=== PATIENT | female | born 1975 ===

== ENCOUNTER 2017-04-13 21:28 | Inpatient (IN) | payer MEDICAID ==
[2017-04-13] MEDS ORDERED: Sodium Chloride 0.9% 1,000 ML IV STA (21:58)
--- NOTE | 2017-04-13 22:13 | ED PDOC ---
HPI: SOB/CHF/COPD Time Seen by Provider: 04/13/17 21:46 Chief Complaint (Nursing): Shortness Of Breath Chief Complaint (Provider): Shortness Of Breath History Per: Patient History/Exam Limitations: no limitations Onset/Duration Of Symptoms: Days (x2) Current Symptoms Are (Timing): Still Present Additional Complaint(s): 42 year old female with previous medical history of diabetes and hypertension, who presents to the emergency department with a complaint of shortness of breath associated with chest tightness, mild cough, nonbloody and nonbilious vomiting, decreased fluid intake, chills and bodyaches ongoing for 2 days. Denied any fever, diarrhea, abdominal pain or recent travel. Patient reported son currently has flu-like symptoms without antibiotic treatment. PMD: Dr Maria Teresa Yuen Past Medical History Reviewed: Historical Data, Nursing Documentation, Vital Signs Vital Signs: Last Vital Signs Temp 99.4 F 04/15/17 12:00 Pulse 80 04/15/17 13:37 Resp 16 04/15/17 13:37 BP 112/60 04/15/17 13:37 Pulse Ox 100 04/15/17 13:37 - Medical History PMH: Diabetes, HTN - Surgical History Surgical History: Tonsillectomy - Family History Family History: States: Diabetes, Hypertension - Social History Current smoker - smoking cessation education provided: Yes Alcohol: Occasional Drugs: Denies - Home Medications Home Medications: Ambulatory Orders Medication Instructions Recorded Enalapril Maleate [Vasotec] 5 mg PO DAILY 04/13/17 Insulin Glargine,Hum.rec.anlog 30 unit SQ HS 04/13/17 [Basaglar Kwikpen U-100] Insulin Lispro [humALOG] 10 units SC BID 04/13/17 - Allergies Allergies/Adverse Reactions: Allergies Allergy/AdvReac Type Severity Reaction Status Date / Time No Known Allergies Allergy Verified 04/13/17 21:53 Review of Systems ROS Statement: Except As Marked, All Systems Reviewed And Found Negative Constitutional: Positive for: Chills, Other (bodyache). Negative for: Fever Cardiovascular: Positive for: Chest Pain (tightness) Respiratory: Positive for: Cough (mild), Shortness of Breath Gastrointestinal: Positive for: Vomiting (nonbloody, nonbilious), Other ( decreased PO intake). Negative for: Abdominal Pain, Diarrhea Physical Exam - Reviewed Nursing Documentation Reviewed: Yes Vital Signs Reviewed: Yes - Physical Exam Appears: Positive for: Non-toxic, In Acute Distress Head Exam: Positive for: ATRAUMATIC, NORMOCEPHALIC Skin: Positive for: Warm, Dry Eye Exam: Positive for: EOMI, PERRL ENT: Positive for: Other (tacky mucus membranes). Negative for: Pharyngeal Erythema, Tonsillar Exudate Neck: Positive for: Painless ROM, Supple Cardiovascular/Chest: Positive for: Tachycardia. Negative for: Murmur Respiratory: Positive for: Normal Breath Sounds, Respiratory Distress (tachypnea ). Negative for: Wheezing Gastrointestinal/Abdominal: Positive for: Soft. Negative for: Tenderness, Mass , Distended, Guarding Back: Positive for: Normal Inspection. Negative for: Decreased ROM Extremity: Positive for: Normal ROM. Negative for: Deformity Lymphatic: Negative for: Adenopathy Neurologic/Psych: Positive for: Alert. Negative for: Motor/Sensory Deficits - Laboratory Results Result Diagrams: 04/15/17 04:30 04/15/17 04:30 Interpretation Of Abn Labs: NOTE: LABS ABOVE ARE NOT THE RESULTS AT TIME OF ER EVALUATION - ECG ECG Rhythm: Positive for: Normal QRS, Sinus Tachycardia O2 Sat by Pulse Oximetry: 100 (RA) Pulse Ox Interpretation: Normal - Radiology X-Ray Interpretation: No Acute Disease - Critical Care Total Time (In Min): 30 Documented Critical Care: Time excludes all time spent performint seperately billable procedures Medical Decision Making Medical Decision Making: Initial Impression: Vomiting; chest pain Differential Diagnosis: Gastritis; gastroenteritis; pancreatitis; DKA; electrolyte abnormality; dehydration Initial Plan: * VBG * EKG * Amylase * CMP * Lipase * Magnesium * Phosphorous * Troponin I * Urine * Urine dipstick * CBC * CXR * NS 1,000ml IV per 1,000mls/hr * Protonix inj 40mg IVP * Zofran inj 8mg IV * Glucose, blood, POC * Influenza A B VBG and ABG demonstrated marked acidosis, with elevated glucose. Pt's withheld her insulin today due to feeling ill and not eating much. Labs c/w DKA. Insulin bolus and drip started. GWYN pt findings and need to hospitalize for DKA. [facility] for critical care consult. [facility] [employer] admitting for [facility]. Scribe Attestation: Documented by Lou Cheney, acting as a scribe for Chelsea Mitchell MD. Provider Scribe Attestation: All medical record entries made by the Scribe were at my direction and personally dictated by me. I have reviewed the chart and agree that the record accurately reflects my personal performance of the history, physical exam, medical decision making, and the department course for this patient. I have also personally directed, reviewed, and agree with the discharge instructions and disposition. Disposition - Clinical Impression Clinical Impression: Diabetic keto-acidosis Counseled Patient/Family Regarding: Studies Performed, Diagnosis - Disposition Disposition Time: 23:00 Condition: CRITICAL - Pt Status Changed To: Hospital Disposition Of: Inpatient - Admit Certification Admit to Inpatient:: After my assessment, the patient will require hospitalization for at least two midnights. This is because of the severity of symptoms shown, intensity of services needed, and/or the medical risk in this patient being treated as an outpatient. - POA Present On Arrival: Poor Glycemic Control
[2017-04-13 22:31] LABS: VENOUS BLOOD GAS PCO2 23 mmHg (40-60); VENOUS BLOOD GAS PO2 26 mm/Hg (30-55); VENOUS BLOOD PH 7.04 (7.32-7.43)
[2017-04-13 22:45] LABS: ABG ALLEN TEST YES; ARTERIAL BLOOD GAS HCO3 6.2 mmol/L (21-28); ARTERIAL BLOOD GAS O2 CAPACITY 18.9 mL/dL (16-24); ARTERIAL BLOOD GAS O2 SAT 100.4 % (95-98); ARTERIAL BLOOD GAS PCO2 11 mm/Hg (35-45); ARTERIAL BLOOD GAS PO2 121 mm/Hg (80-100); ARTERIAL BLOOD GAS TCO2 3.7 mmol/L (22-28)
[2017-04-13 22:49] LABS: BASO % 0.4 % (0.0-2.0); LYMPH # 0.6 K/uL (1.0-4.3); LYMPH % 5.3 % (20.0-40.0); MEAN CELL VOLUME 105.8 fl (81.0-99.0); MEAN CORPUSCULAR HEMOGLOBIN 34.8 pg (27.0-31.0); MEAN CORPUSCULAR HGB CONC 32.8 g/dL (33.0-37.0); MEAN PLATELET VOLUME 11.1 fl (7.2-11.7); MONO % 8.8 % (0.0-10.0); NEUT # 9.6 K/uL (1.8-7.0); NEUT % 85.5 % (50.0-75.0); PLATELET COUNT 145 K/uL (130-400); RBC 4.04 Mil/uL (3.80-5.20); RED CELL DISTRIBUTION WIDTH 13.4 % (11.5-14.5); WHITE BLOOD COUNT 11.2 K/uL (4.8-10.8)
[2017-04-13] MEDS ORDERED: Insulin Regular 100 units/ml SC STA (22:49)
--- NOTE | 2017-04-13 23:25 | CP.PCM.CON ---
History of Present Illness - History of Present Illness History of Present Illness: CC: n/v persistent, Reason for ICU: apparently with what appears to be DKA HPI: This is a 42 y/o female with MHx signifcant for DM2 and HTN who came in with c/o respiratory symptoms as well as n/v x 2 days. States she had some nb/ nb n/v, but no diarrhea. 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 Did have some myalgias as well. No f/c. Patient has a family member with some similar symptoms. PCP: Chandan at [place] MHx: DM2, HTN SHx: Tonsillectomy Allergies: NKDA Medications: As per med rec Family Hx: There is DM and HTN in family, multiple members Social Hx: Lives with family, occ EtOH, occ tobacco Past Patient History - Past Social History Alcohol: Occasional Drugs: Denies - CARDIAC Hx Hypertension: Yes - SURGICAL HISTORY Hx Tonsillectomy: Yes Meds Allergies/Adverse Reactions: Allergies Allergy/AdvReac Type Severity Reaction Status Date / Time No Known Allergies Allergy Verified 04/13/17 21:53 - Medications Medications: Current Medications Insulin Human Regular 100 (units/ Sodium Chloride) 101 mls @ 7.07 mls/hr IV .[id number] KAUSHAL; 7 UNITS/HR PRN Reason: Protocol Sodium Chloride (Sodium Chloride 0.9%) 1,000 mls @ 200 mls/hr IV .Q5H KAUSHAL Stop: 04/14/17 09:14 Ondansetron HCl (Zofran Inj) 4 mg IVP Q6H PRN PRN Reason: Nausea/Vomiting Physical Exam - Constitutional Appears: No Acute Distress - Head Exam Head Exam: ATRAUMATIC, NORMOCEPHALIC - Eye Exam Eye Exam: EOMI, PERRL - ENT Exam ENT Exam: Mucous Membranes Dry - Respiratory Exam Respiratory Exam: Clear to Auscultation Bilateral Additional comments: tachypneic - Cardiovascular Exam Cardiovascular Exam: Tachycardia, REGULAR RHYTHM, +S1, +S2 - GI/Abdominal Exam GI & Abdominal Exam: Normal Bowel Sounds, Soft - Extremities Exam Extremities exam: Positive for: full ROM, normal inspection - Neurological Exam Neurological exam: Alert, CN II-XII Intact, Oriented x3 - Psychiatric Exam Psychiatric exam: Normal Affect, Normal Mood - Skin Skin Exam: Dry, Warm Results - Vital Signs Recent Vital Signs: Last Vital Signs Temp 98.1 F 04/13/17 21:51 Pulse 126 H 04/13/17 21:51 Resp 20 04/13/17 21:51 BP 132/76 04/13/17 21:51 Pulse Ox 100 04/13/17 23:18 - Labs Result Diagrams: 04/13/17 22:44 Labs: Laboratory Results - last 24 hr 04/13/17 04/13/17 04/13/17 21:56 22:23 22:39 WBC RBC Hgb Hct MCV MCH MCHC RDW Plt Count MPV Neut % (Auto) Lymph % (Auto) [place] % (Auto) Eos % (Auto) Baso % (Auto) Neut # Lymph # [place] # Eos # Baso # pCO2 11 L* pO2 26 L 121 H HCO3 6.2 L* ABG pH 7.10 L* ABG Total CO2 3.7 L ABG O2 Saturation 100.4 H ABG O2 Content 19.0 ABG Base Excess -23.9 L ABG Hemoglobin 14.0 ABG Carboxyhemoglobin 2.4 H POC ABG HHb (Measured) -0.4 L ABG Methemoglobin 2.1 ABG O2 Capacity 18.9 Kyle Test Yes VBG pH 7.04 L* VBG pCO2 23 L VBG HCO3 5.0 VBG Total CO2 6.9 L VBG O2 Sat (Calc) 50.7 VBG Base Excess -23.0 L VBG Potassium 4.4 A-a O2 Difference 15.0 Hgb O2 Saturation 95.9 Sodium 133.0 Chloride 95.0 L Glucose 366 H Lactate 2.2 H FiO2 21.0 21.0 Blood Gas Comments Lactate 2.2 Crit Value Called To melonie Baltazar melissa Crit Value Called By [id number] Crit Value Read Back Y Y Blood Gas Notified Time 22305 POC Glucose (mg/dL) 316 H Venous Blood Potassium 4.4 04/13/17 22:44 WBC 11.2 H RBC 4.04 Hgb 14.0 Hct 42.7 MCV 105.8 H MCH 34.8 H MCHC 32.8 L RDW 13.4 Plt Count 145 MPV 11.1 Neut % (Auto) 85.5 H Lymph % (Auto) 5.3 L [place] % (Auto) 8.8 Eos % (Auto) 0.0 Baso % (Auto) 0.4 Neut # 9.6 H Lymph # 0.6 L [place] # 1.0 H Eos # 0.0 Baso # 0.0 pCO2 pO2 HCO3 ABG pH ABG Total CO2 ABG O2 Saturation ABG O2 Content ABG Base Excess ABG Hemoglobin ABG Carboxyhemoglobin POC ABG HHb (Measured) ABG Methemoglobin ABG O2 Capacity Kyle Test VBG pH VBG pCO2 VBG HCO3 VBG Total CO2 VBG O2 Sat (Calc) VBG Base Excess VBG Potassium A-a O2 Difference Hgb O2 Saturation Sodium Chloride Glucose Lactate FiO2 Blood Gas Comments Crit Value Called To Crit Value Called By Crit Value Read Back Blood Gas Notified Time POC Glucose (mg/dL) Venous Blood Potassium - Imaging and Cardiology Chest x-ray Status: Image reviewed by me (no acute findings) Assessment & Plan (1) Diabetic keto-acidosis Assessment and Plan: 42 y/o female with HTN and DM2 coming in with presumed DKA in setting of persistent n/v, inability to take PO and DM medications -Admit ICU -Continue insulin gtt with q1h accucheck -NPO, IV NS -Repeat BMP, ABG in 4 hours -SCDs only for DVT PPx now given multiple labs pending Status: Acute
[2017-04-13] MEDS ORDERED: Alum-Mag Hydrox-Simethicone Susp (30 mL) PO STA (23:39)
[2017-04-14] MEDS: Sodium Chloride 0.9% 1,000 ML IV SCH ×2 (00:21→13:43)
[2017-04-14 00:29] LABS: ALB/GLOB RATIO 1.5 (1.0-2.1); ALBUMIN 4.6 g/dL (3.5-5.0); ALT/SGPT 201 U/L (9-52); AST/SGOT 83 U/L (14-36); BLOOD UREA NITROGEN 7 mg/dl (7-17); CALCIUM 8.6 mg/dL (8.4-10.2); GFR AFRICAN-AMERICAN > 60; GFR NON-AFRICAN AMERICAN > 60; LIPASE 108 U/L (23-300); MAGNESIUM 1.9 MG/DL (1.6-2.3)
[2017-04-14 01:29] LABS: URINE BILIRUBIN NEGATIVE (NEGATIVE); URINE CLARITY SLIGHT-CLOUDY (Clear); URINE COLOR STRAW (YELLOW); URINE GLUCOSE (UA) >500 mg/dL (Normal)
[2017-04-14 01:30] LABS: URINE BLOOD LARGE (NEGATIVE); URINE PROTEIN 100 mg/dL (NEGATIVE); URINE UROBILINOGEN 0.2 mg/dL (0.2-1.0)
[2017-04-14 01:31] LABS: SQUAMOUS EPITHIAL 2 /hpf (0-5); URINE LEUKOCYTE ESTERASE NEGATIVE Leu/uL (Negative); URINE NITRATE NEGATIVE (NEGATIVE)
[2017-04-14 02:15] VITALS: BMI 24.6
[2017-04-14 03:26] LABS: ANISOCYTOSIS SLIGHT; BANDS 2 % (0-2); BURR CELLS SLIGHT; LYMPHOCYTE 5 % (20-50); MONOCYTE 6 % (0-10); MYELOCYTE 2 % (0-0); NEUTROPHIL 85 % (42-75); PLATELET ESTIMATE NORMAL (NORMAL); TOTAL CELLS COUNTED 100
[2017-04-14 05:27] LABS: ABG ALLEN TEST YES; ARTERIAL BLOOD GAS HCO3 11.3 mmol/L (21-28); ARTERIAL BLOOD GAS HEMOGLOBIN 13.1 g/dL (11.7-17.4); ARTERIAL BLOOD GAS O2 CONTENT 17.9 ML/dL (15-23); ARTERIAL BLOOD GAS O2 SAT 99.5 % (95-98); ARTERIAL BLOOD GAS PCO2 17 mm/Hg (35-45); ARTERIAL BLOOD GAS PH 7.25 (7.35-7.45); ARTERIAL BLOOD GAS PO2 101 mm/Hg (80-100)
[2017-04-14] MEDS ORDERED: Dextrose 5%/0.45% NS 1,000 ML IV SCH (05:45)
[2017-04-14 06:14] LABS: BLOOD UREA NITROGEN 6 mg/dl (7-17); GFR AFRICAN-AMERICAN > 60; GFR NON-AFRICAN AMERICAN > 60
[2017-04-14 06:15] LABS: ALB/GLOB RATIO 1.4 (1.0-2.1); AST/SGOT 69 U/L (14-36); CALCIUM 8.3 mg/dL (8.4-10.2)
[2017-04-14 06:16] LABS: ALT/SGPT 165 U/L (9-52)
--- NOTE | 2017-04-14 07:07 | CP.PCM.HP ---
History of Present Illness - History of Present Illness History of Present Illness: pt admitted for dka after having n/v and abd cramping x 2 days [facility] [employer]. no f/c, n/v/ d at prsent. no pain. c/o dry mouth. hr [address] bw noted. Present on Admission - Present on Admission Any Indicators Present on Admission: Yes History of Uncontrolled Diabetes: Yes Review of Systems - Gastrointestinal Gastrointestinal: As Per HPI, Abdominal Pain, Cramping, Nausea, Vomiting Past Patient History - Past Medical History & Family History Past Medical History?: Yes - Past Social History Smoking Status: Current Some Days Smoker - CARDIAC Hx Cardiac Disorders: Yes - PULMONARY Hx Respiratory Disorders: No - NEUROLOGICAL Hx Neurological Disorder: No - HEENT Hx HEENT Problems: No - RENAL Hx Chronic Kidney Disease: No - ENDOCRINE/METABOLIC Hx Endocrine Disorders: Yes - HEMATOLOGICAL/ONCOLOGICAL Hx Blood Disorders: No - INTEGUMENTARY Hx Dermatological Problems: No - MUSCULOSKELETAL/RHEUMATOLOGICAL Hx Musculoskeletal Disorders: No - GASTROINTESTINAL Hx Gastrointestinal Disorders: No - GENITOURINARY/GYNECOLOGICAL Hx Genitourinary Disorders: Yes - PSYCHIATRIC Hx Psychophysiologic Disorder: No - SURGICAL HISTORY Hx Surgeries: Yes Hx Tonsillectomy: Yes - ANESTHESIA Hx Anesthesia: No Hx Anesthesia Reactions: No Hx Malignant Hyperthermia: No Has any member of the family had a problem w/ anesthesia?: No Meds Allergies/Adverse Reactions: Allergies Allergy/AdvReac Type Severity Reaction Status Date / Time No Known Allergies Allergy Verified 04/13/17 21:53 Physical Exam - Constitutional Appears: Well, Non-toxic, No Acute Distress - Head Exam Head Exam: ATRAUMATIC, NORMAL INSPECTION, NORMOCEPHALIC - Eye Exam Eye Exam: EOMI, Normal appearance, PERRL Pupil Exam: NORMAL ACCOMODATION, PERRL - ENT Exam ENT Exam: Mucous Membranes Moist, Normal Exam - Neck Exam Neck exam: Positive for: Normal Inspection - Respiratory Exam Respiratory Exam: Clear to Auscultation Bilateral, NORMAL BREATHING PATTERN - Cardiovascular Exam Cardiovascular Exam: REGULAR RHYTHM, RRR, +S1, +S2 - GI/Abdominal Exam GI & Abdominal Exam: Normal Bowel Sounds, Soft. absent: Tenderness - Extremities Exam Extremities exam: Positive for: full ROM, normal capillary refill, normal inspection, pedal pulses present - Back Exam Back exam: NORMAL INSPECTION - Neurological Exam Neurological exam: Alert, CN II-XII Intact, Normal Gait, Oriented x3, Reflexes Normal - Psychiatric Exam Psychiatric exam: Normal Affect, Normal Mood - Skin Skin Exam: Dry, Intact, Normal Color, Warm Results - Vital Signs Recent Vital Signs: Last Vital Signs Temp 98.7 F 04/14/17 04:00 Pulse 108 H 04/14/17 06:00 Resp 24 04/14/17 06:00 BP 148/81 04/14/17 06:00 Pulse Ox 100 04/14/17 06:00 - Labs Result Diagrams: 04/13/17 22:44 04/14/17 04:40 Labs: Laboratory Results - last 24 hr 04/13/17 04/13/17 04/13/17 21:56 22:23 22:39 WBC RBC Hgb Hct MCV MCH MCHC RDW Plt Count MPV Neut % (Auto) Lymph % (Auto) [place] % (Auto) Eos % (Auto) Baso % (Auto) Neut # Lymph # Reynolds # Eos # Baso # Neutrophils % (Manual) Band Neutrophils % Lymphocytes % (Manual) Monocytes % (Manual) Myelocytes % Platelet Estimate Anisocytosis (manual) [place] Cells pCO2 11 L* pO2 26 L 121 H HCO3 6.2 L* ABG pH 7.10 L* ABG Total CO2 3.7 L ABG O2 Saturation 100.4 H ABG O2 Content 19.0 ABG Base Excess -23.9 L ABG Hemoglobin 14.0 ABG Carboxyhemoglobin 2.4 H POC ABG HHb (Measured) -0.4 L ABG Methemoglobin 2.1 ABG O2 Capacity 18.9 Kyle Test Yes VBG pH 7.04 L* VBG pCO2 23 L VBG HCO3 5.0 VBG Total CO2 6.9 L VBG O2 Sat (Calc) 50.7 VBG Base Excess -23.0 L VBG Potassium 4.4 A-a O2 Difference 15.0 Hgb O2 Saturation 95.9 Sodium 133.0 Chloride 95.0 L Glucose 366 H Lactate 2.2 H FiO2 21.0 21.0 Blood Gas Comments Lactate 2.2 Crit Value Called To melonie Baltazar melissa Crit Value Called By 203 203 Crit Value Read Back Y Y Blood Gas Notified Time 2230 2245 Potassium Carbon Dioxide Anion Gap BUN Creatinine Est GFR ( Amer) Est GFR (Non-Af Amer) POC Glucose (mg/dL) 316 H Random Glucose Lactic Acid Calcium Phosphorus Magnesium Total Bilirubin AST ALT Alkaline Phosphatase Troponin I Total Protein Albumin Globulin Albumin/Globulin Ratio Lipase Venous Blood Potassium 4.4 Urine Color Urine Clarity Urine pH Ur Specific [place] Urine Protein Urine Glucose (UA) Urine Ketones Urine Blood Urine Nitrate Urine Bilirubin Urine Urobilinogen Ur Leukocyte Esterase Urine RBC (Auto) Urine Microscopic WBC Ur Squamous Epith Cells Hyaline Casts Influenza Typ A,B (EIA) 04/13/17 04/13/17 04/14/17 22:44 22:44 00:00 WBC 11.2 H RBC 4.04 Hgb 14.0 Hct 42.7 MCV 105.8 H MCH 34.8 H MCHC 32.8 L RDW 13.4 Plt Count 145 MPV 11.1 Neut % (Auto) 85.5 H Lymph % (Auto) 5.3 L Reynolds % (Auto) 8.8 Eos % (Auto) 0.0 Baso % (Auto) 0.4 Neut # 9.6 H Lymph # 0.6 L Reynolds # 1.0 H Eos # 0.0 Baso # 0.0 Neutrophils % (Manual) 85 H Band Neutrophils % 2 Lymphocytes % (Manual) 5 L Monocytes % (Manual) 6 Myelocytes % 2 H Platelet Estimate Normal Anisocytosis (manual) Slight [place] Cells Slight pCO2 pO2 HCO3 ABG pH ABG Total CO2 ABG O2 Saturation ABG O2 Content ABG Base Excess ABG Hemoglobin ABG Carboxyhemoglobin POC ABG HHb (Measured) ABG Methemoglobin ABG O2 Capacity Kyle Test VBG pH VBG pCO2 VBG HCO3 VBG Total CO2 VBG O2 Sat (Calc) VBG Base Excess VBG Potassium A-a O2 Difference Hgb O2 Saturation Sodium 140 Chloride 105 Glucose Lactate FiO2 Blood Gas Comments Crit Value Called To Crit Value Called By Crit Value Read Back Blood Gas Notified Time Potassium 3.7 Carbon Dioxide < 5 L* Anion Gap 34 H BUN 7 Creatinine 0.7 Est GFR ( Amer) > 60 Est GFR (Non-Af Amer) > 60 POC Glucose (mg/dL) Random Glucose 285 H Lactic Acid Calcium 8.6 Phosphorus 3.2 Magnesium 1.9 Total Bilirubin 0.3 AST 83 H ALT 201 H Alkaline Phosphatase 87 Troponin I < 0.0120 Total Protein 7.8 Albumin 4.6 Globulin 3.2 Albumin/Globulin Ratio 1.5 Lipase 108 Venous Blood Potassium Urine Color Urine Clarity Urine pH Ur Specific [place] Urine Protein Urine Glucose (UA) Urine Ketones Urine Blood Urine Nitrate Urine Bilirubin Urine Urobilinogen Ur Leukocyte Esterase Urine RBC (Auto) Urine Microscopic WBC Ur Squamous Epith Cells Hyaline Casts Influenza Typ A,B (EIA) Negative for flu a/b 04/14/17 04/14/17 04/14/17 00:00 00:09 01:00 WBC RBC Hgb Hct MCV MCH MCHC RDW Plt Count MPV Neut % (Auto) Lymph % (Auto) [place] % (Auto) Eos % (Auto) Baso % (Auto) Neut # Lymph # [place] # Eos # Baso # Neutrophils % (Manual) Band Neutrophils % Lymphocytes % (Manual) Monocytes % (Manual) Myelocytes % Platelet Estimate Anisocytosis (manual) [place] Cells pCO2 pO2 HCO3 ABG pH ABG Total CO2 ABG O2 Saturation ABG O2 Content ABG Base Excess ABG Hemoglobin ABG Carboxyhemoglobin POC ABG HHb (Measured) ABG Methemoglobin ABG O2 Capacity Kyle Test VBG pH VBG pCO2 VBG HCO3 VBG Total CO2 VBG O2 Sat (Calc) VBG Base Excess VBG Potassium A-a O2 Difference Hgb O2 Saturation Sodium Chloride Glucose Lactate FiO2 Blood Gas Comments Crit Value Called To Crit Value Called By Crit Value Read Back Blood Gas Notified Time Potassium Carbon Dioxide Anion Gap BUN Creatinine Est GFR ( Amer) Est GFR (Non-Af Amer) POC Glucose (mg/dL) 250 H Random Glucose Lactic Acid Calcium Phosphorus Magnesium Total Bilirubin AST ALT Alkaline Phosphatase Troponin I < 0.0120 Total Protein Albumin Globulin Albumin/Globulin Ratio Lipase Venous Blood Potassium Urine Color Straw Urine Clarity Slight-cloudy Urine pH 5.0 Ur Specific [place] 1.018 Urine Protein 100 Urine Glucose (UA) >500 Urine Ketones 80 Urine Blood Large Urine Nitrate Negative Urine Bilirubin Negative Urine Urobilinogen 0.2 Ur Leukocyte Esterase Negative Urine RBC (Auto) 1 Urine Microscopic WBC 1 Ur Squamous Epith Cells 2 Hyaline Casts 3-5 H Influenza Typ A,B (EIA) 04/14/17 04/14/17 04/14/17 01:39 02:24 03:31 WBC RBC Hgb Hct MCV MCH MCHC RDW Plt Count MPV Neut % (Auto) Lymph % (Auto) [place] % (Auto) Eos % (Auto) Baso % (Auto) Neut # Lymph # [place] # Eos # Baso # Neutrophils % (Manual) Band Neutrophils % Lymphocytes % (Manual) Monocytes % (Manual) Myelocytes % Platelet Estimate Anisocytosis (manual) [place] Cells pCO2 pO2 HCO3 ABG pH ABG Total CO2 ABG O2 Saturation ABG O2 Content ABG Base Excess ABG Hemoglobin ABG Carboxyhemoglobin POC ABG HHb (Measured) ABG Methemoglobin ABG O2 Capacity Kyle Test VBG pH VBG pCO2 VBG HCO3 VBG Total CO2 VBG O2 Sat (Calc) VBG Base Excess VBG Potassium A-a O2 Difference Hgb O2 Saturation Sodium Chloride Glucose Lactate FiO2 Blood Gas Comments Crit Value Called To Crit Value Called By Crit Value Read Back Blood Gas Notified Time Potassium Carbon Dioxide Anion Gap BUN Creatinine Est GFR ( Amer) Est GFR (Non-Af Amer) POC Glucose (mg/dL) 220 H 235 H 216 H Random Glucose Lactic Acid Calcium Phosphorus Magnesium Total Bilirubin AST ALT Alkaline Phosphatase Troponin I Total Protein Albumin Globulin Albumin/Globulin Ratio Lipase Venous Blood Potassium Urine Color Urine Clarity Urine pH Ur Specific [place] Urine Protein Urine Glucose (UA) Urine Ketones Urine Blood Urine Nitrate Urine Bilirubin Urine Urobilinogen Ur Leukocyte Esterase Urine RBC (Auto) Urine Microscopic WBC Ur Squamous Epith Cells Hyaline Casts Influenza Typ A,B (EIA) 04/14/17 04/14/17 04/14/17 04:23 04:35 04:40 WBC 10.3 RBC 3.63 L Hgb 12.7 Hct 38.5 MCV 106.0 H MCH 34.9 H MCHC 32.9 L RDW 12.9 Plt Count 119 L D MPV 10.7 Neut % (Auto) Lymph % (Auto) 5.1 L [place] % (Auto) 14.1 H Eos % (Auto) 0.0 Baso % (Auto) 0.2 Neut # Lymph # 0.5 L [place] # 1.5 H Eos # 0.0 Baso # 0.0 Neutrophils % (Manual) Band Neutrophils % Lymphocytes % (Manual) Monocytes % (Manual) Myelocytes % Platelet Estimate Anisocytosis (manual) [place] Cells pCO2 pO2 HCO3 ABG pH ABG Total CO2 ABG O2 Saturation ABG O2 Content ABG Base Excess ABG Hemoglobin ABG Carboxyhemoglobin POC ABG HHb (Measured) ABG Methemoglobin ABG O2 Capacity Kyle Test VBG pH VBG pCO2 VBG HCO3 VBG Total CO2 VBG O2 Sat (Calc) VBG Base Excess VBG Potassium A-a O2 Difference Hgb O2 Saturation Sodium Chloride Glucose Lactate FiO2 Blood Gas Comments Crit Value Called To Crit Value Called By Crit Value Read Back Blood Gas Notified Time Potassium Carbon Dioxide Anion Gap BUN Creatinine Est GFR ( Amer) Est GFR (Non-Af Amer) POC Glucose (mg/dL) 213 H Random Glucose Lactic Acid 1.3 Calcium Phosphorus Magnesium Total Bilirubin AST ALT Alkaline Phosphatase Troponin I Total Protein Albumin Globulin Albumin/Globulin Ratio Lipase Venous Blood Potassium Urine Color Urine Clarity Urine pH Ur Specific [place] Urine Protein Urine Glucose (UA) Urine Ketones Urine Blood Urine Nitrate Urine Bilirubin Urine Urobilinogen Ur Leukocyte Esterase Urine RBC (Auto) Urine Microscopic WBC Ur Squamous Epith Cells Hyaline Casts Influenza Typ A,B (EIA) 04/14/17 04/14/17 04/14/17 04:40 05:24 05:38 WBC RBC Hgb Hct MCV MCH MCHC RDW Plt Count MPV Neut % (Auto) Lymph % (Auto) [place] % (Auto) Eos % (Auto) Baso % (Auto) Neut # Lymph # [place] # Eos # Baso # Neutrophils % (Manual) Band Neutrophils % Lymphocytes % (Manual) Monocytes % (Manual) Myelocytes % Platelet Estimate Anisocytosis (manual) [place] Cells pCO2 17 L* pO2 101 H HCO3 11.3 L ABG pH 7.25 L ABG Total CO2 8.0 L ABG O2 Saturation 99.5 H ABG O2 Content 17.9 ABG Base Excess -17.4 L ABG Hemoglobin 13.1 ABG Carboxyhemoglobin 1.6 H POC ABG HHb (Measured) 0.5 ABG Methemoglobin 1.4 ABG O2 Capacity 18.0 Kyle Test Yes VBG pH VBG pCO2 VBG HCO3 VBG Total CO2 VBG O2 Sat (Calc) VBG Base Excess VBG Potassium A-a O2 Difference 27.0 Hgb O2 Saturation 96.5 Sodium 140 Chloride 109 H Glucose Lactate FiO2 21.0 Blood Gas Comments Crit Value Called To Maricarmen jay rn Crit Value Called By 6075 Crit Value Read Back Y Blood Gas Notified Time 527 Potassium 4.3 Carbon Dioxide 8 L* D Anion Gap 27 H BUN 6 L Creatinine 0.7 Est GFR ( Amer) > 60 Est GFR (Non-Af Amer) > 60 POC Glucose (mg/dL) 177 H Random Glucose 213 H Lactic Acid Calcium 8.3 L Phosphorus Magnesium Total Bilirubin 0.2 AST 69 H ALT 165 H Alkaline Phosphatase 75 Troponin I Total Protein 6.9 Albumin 4.0 Globulin 2.9 Albumin/Globulin Ratio 1.4 Lipase Venous Blood Potassium Urine Color Urine Clarity Urine pH Ur Specific [place] Urine Protein Urine Glucose (UA) Urine Ketones Urine Blood Urine Nitrate Urine Bilirubin Urine Urobilinogen Ur Leukocyte Esterase Urine RBC (Auto) Urine Microscopic WBC Ur Squamous Epith Cells Hyaline Casts Influenza Typ A,B (EIA) 04/14/17 06:42 WBC RBC Hgb Hct MCV MCH MCHC RDW Plt Count MPV Neut % (Auto) Lymph % (Auto) [place] % (Auto) Eos % (Auto) Baso % (Auto) Neut # Lymph # [place] # Eos # Baso # Neutrophils % (Manual) Band Neutrophils % Lymphocytes % (Manual) Monocytes % (Manual) Myelocytes % Platelet Estimate Anisocytosis (manual) [place] Cells pCO2 pO2 HCO3 ABG pH ABG Total CO2 ABG O2 Saturation ABG O2 Content ABG Base Excess ABG Hemoglobin ABG Carboxyhemoglobin POC ABG HHb (Measured) ABG Methemoglobin ABG O2 Capacity Kyle Test VBG pH VBG pCO2 VBG HCO3 VBG Total CO2 VBG O2 Sat (Calc) VBG Base Excess VBG Potassium A-a O2 Difference Hgb O2 Saturation Sodium Chloride Glucose Lactate FiO2 Blood Gas Comments Crit Value Called To Crit Value Called By Crit Value Read Back Blood Gas Notified Time Potassium Carbon Dioxide Anion Gap BUN Creatinine Est GFR ( Amer) Est GFR (Non-Af Amer) POC Glucose (mg/dL) 187 H Random Glucose Lactic Acid Calcium Phosphorus Magnesium Total Bilirubin AST ALT Alkaline Phosphatase Troponin I Total Protein Albumin Globulin Albumin/Globulin Ratio Lipase Venous Blood Potassium Urine Color Urine Clarity Urine pH Ur Specific [place] Urine Protein Urine Glucose (UA) Urine Ketones Urine Blood Urine Nitrate Urine Bilirubin Urine Urobilinogen Ur Leukocyte Esterase Urine RBC (Auto) Urine Microscopic WBC Ur Squamous Epith Cells Hyaline Casts Influenza Typ A,B (EIA) Assessment & Plan (1) AGE (acute gastroenteritis) Assessment and Plan: pepcid, zofran, bentyl ivf po as lucie Status: Acute (2) DVT prophylaxis Assessment and Plan: scd and ae hose ambulation Status: Acute (3) Diabetic keto-acidosis Assessment and Plan: icu admission, d5 1/2, insulin gtt hold home meds for now fsbg q1h Status: Acute Decision To Admit - Pt Status Changed To: Hospital Disposition Of: Inpatient - Admit Certification Admit to Inpatient:: After my assessment, the patient will require hospitalization for at least two midnights. This is because of the severity of symptoms shown, intensity of services needed, and/or the medical risk in this patient being treated as an outpatient. - . Bed Request Type: Intensive Care Admitting Physician: Sherry Willis
[2017-04-14 08:05] LABS: BASO # 0.2 K/uL (0.0-0.2); BASO % 1.7 % (0.0-2.0); EOS % 0.1 % (0.0-4.0); HEMOGLOBIN 14.2 g/dL (12.0-16.0); LYMPH # 0.6 K/uL (1.0-4.3); LYMPH % 4.9 % (20.0-40.0); MEAN CELL VOLUME 107.6 fl (81.0-99.0); MEAN CORPUSCULAR HEMOGLOBIN 35.2 pg (27.0-31.0); MEAN CORPUSCULAR HGB CONC 32.7 g/dL (33.0-37.0); MEAN PLATELET VOLUME 13.1 fl (7.2-11.7); NEUT # 9.8 K/uL (1.8-7.0); NEUT % 84.3 % (50.0-75.0); NRBC % 0.1 % (0.0-0.0); PLATELET COUNT 167 K/uL (130-400); RBC 4.02 Mil/uL (3.80-5.20); RED CELL DISTRIBUTION WIDTH 13.9 % (11.5-14.5); WHITE BLOOD COUNT 11.6 K/uL (4.8-10.8)
--- NOTE | 2017-04-14 09:51 | RAD ---
HISTORY: chest pain COMPARISON: No prior. FINDINGS: LUNGS: No active pulmonary disease. PLEURA: No significant pleural effusion identified, no pneumothorax apparent. CARDIOVASCULAR: Normal. OSSEOUS STRUCTURES: No significant abnormalities. VISUALIZED UPPER ABDOMEN: Normal. OTHER FINDINGS: None. IMPRESSION: No active disease.
[2017-04-14] MEDS: Potassium Ch 20mEq in D5-1/2NS 1,000 ML IV SCH ×2 (10:36→22:20)
[2017-04-14 10:48] LABS: BANDS 3 % (0-2); LYMPHOCYTE 5 % (20-50); MONOCYTE 11 % (0-10); NEUTROPHIL 81 % (42-75); TOTAL CELLS COUNTED 100
[2017-04-14 10:49] LABS: PLATELET ESTIMATE NORMAL (NORMAL)
[2017-04-14 10:50] LABS: TEARDROP CELLS SLIGHT; TOXIC GRANULATION PRESENT
--- NOTE | 2017-04-14 12:07 | CP.CCUPN ---
CCU Subjective - Physician Review Events Since Last Encounter (Free Text): 04/14/17 12:07 patient appears better today. No n/v. CCU Objective - Vital Signs / Intake & Output Vital Signs (Last 4 hours): Vital Signs Pulse BP 04/14/17 10:00 110 H 114/66 Intake and Output (Last 8hrs): Intake & Output 04/13/17 04/14/17 04/14/17 22:59 06:59 14:59 Intake Total 1069 Output Total 1150 Balance -81 Weight 160 lb 139 lb 139 lb Intake: IV 1000 Intake, Piggyback 69 Oral 0 Output: Urine 1000 Urine, Voided 1000 Emesis 150 - Physical Exam Head: Positive for: Atraumatic, Normocephalic Pupils: Positive for: PERRL Extroacular Muscles: Positive for: EOMI Conjunctiva: Positive for: Normal Ears: Positive for: Normal Mouth: Positive for: Moist Mucous Membranes Respiratory/Chest: Positive for: Clear to Auscultation, Good Air Exchange Cardiovascular: Positive for: Regular Rate and Rhythm Abdomen: Positive for: Normal Bowel Sounds. Negative for: Tenderness, Distention Neurological: Positive for: GCS=15, CN II-XII Intact Psychiatric: Positive for: Alert, Oriented x 3 - Medications Active Medications: Active Medications Generic Name Dose Route Start Last Admin Trade Name Freq PRN Reason Stop Dose Admin Dicyclomine HCl 10 mg 04/14/17 08:07 Bentyl PO QID PRN abd cramping Enalapril Maleate 5 mg 04/14/17 09:00 04/14/17 08:44 Vasotec PO 5 mg DAILY KAUSHAL Administration Famotidine 20 mg 04/14/17 09:00 04/14/17 08:44 Pepcid IVP 20 mg Q12 KAUSHAL Administration Insulin Human Regular 100 101 mls @ 7.07 mls/hr 04/13/17 23:00 04/14/17 06:30 units/ Sodium Chloride IV 2 units/hr .[id number] KAUSHAL 2.02 mls/hr Protocol Titration 7 UNITS/HR Potassium Chloride/Dextrose/Sod Cl 1,000 mls @ 100 mls/hr 04/14/17 10:00 10:36 Potassium Chl 20 Meq In D5-1/2ns IV 04/15/17 09:51 100 mls/hr .Q10H KAUSHAL Administration Metoclopramide HCl 10 mg 04/14/17 05:37 04/14/17 05:53 Reglan IVP 10 mg Q6 PRN Administration Nausea/Vomiting Ondansetron HCl 4 mg 04/13/17 23:13 04/14/17 02:37 Zofran Inj IVP 4 mg Q6H PRN Administration Nausea/Vomiting - Patient Studies Lab Studies: Lab Studies 04/14/17 04/14/17 04/14/17 Range/Units 11:04 10:05 09:01 WBC (4.8-10.8) K/uL RBC (3.80-5.20) Mil/uL Hgb (12.0-16.0) g/dL Hct (34.0-47.0) % MCV (81.0-99.0) fl MCH (27.0-31.0) pg MCHC (33.0-37.0) g/dL RDW (11.5-14.5) % Plt Count (130-400) K/uL MPV (7.2-11.7) fl Gran % Neut % (Auto) (50.0-75.0) % Lymph % (Auto) (20.0-40.0) % [place] % (Auto) (0.0-10.0) % Eos % (Auto) (0.0-4.0) % Baso % (Auto) (0.0-2.0) % Gran # Neut # (1.8-7.0) K/uL Lymph # (1.0-4.3) K/uL [place] # (0.0-0.8) K/uL Eos # (0.0-0.7) K/uL Baso # (0.0-0.2) K/uL Neutrophils % (Manual) (42-75) % Band Neutrophils % (0-2) % Lymphocytes % (Manual) (20-50) % Monocytes % (Manual) (0-10) % Myelocytes % (0-0) % Toxic Granulation Platelet Estimate (NORMAL) Anisocytosis (manual) Macrocytosis (manual) Tear Drop Cells [place] Cells pCO2 (35-45) mm/Hg pO2 (30-55) mm/Hg HCO3 (21-28) mmol/L ABG pH (7.35-7.45) ABG Total CO2 (22-28) mmol/L ABG O2 Saturation (95-98) % ABG O2 Content (15-23) ML/dL ABG Base Excess (-2.0-3.0) mmol/L ABG Hemoglobin (11.7-17.4) g/dL ABG Carboxyhemoglobin (0.5-1.5) % POC ABG HHb (Measured) (0.0-5.0) % ABG Methemoglobin (0.0-3.0) % ABG O2 Capacity (16-24) mL/dL Kyle Test VBG pH (7.32-7.43) VBG pCO2 (40-60) mmHg VBG HCO3 mmol/L VBG Total CO2 (22-28) mmol/L VBG O2 Sat (Calc) (40-65) % VBG Base Excess (0.0-2.0) mmol/L VBG Potassium (3.6-5.2) mmol/L A-a O2 Difference mm/Hg Hgb O2 Saturation (95.0-98.0) % Sodium (132-148) mmol/L Chloride (98-107) mmol/L Glucose (65-105) mg/dL Lactate (0.7-2.1) mmol/L FiO2 % Blood Gas Comments Crit Value Called To Crit Value Called By Crit Value Read Back Blood Gas Notified Time Potassium (3.6-5.0) MMOL/L Carbon Dioxide (22-30) mmol/L Anion Gap (10-20) BUN (7-17) mg/dl Creatinine (0.7-1.2) mg/dl Est GFR ( Amer) Est GFR (Non-Af Amer) POC Glucose (mg/dL) 206 H 210 H 209 H (65-110) mg/dL Random Glucose (65-105) mg/dL Lactic Acid (0.7-2.1) MMOL/L Calcium (8.4-10.2) mg/dL Phosphorus (2.5-4.5) mg/dl Magnesium (1.6-2.3) MG/DL Total Bilirubin (0.2-1.3) mg/dl AST (14-36) U/L ALT (9-52) U/L Alkaline Phosphatase (38-126) U/L Troponin I (0.00-0.120) ng/mL Total Protein (6.3-8.2) G/DL Albumin (3.5-5.0) g/dL Globulin (2.2-3.9) gm/dL Albumin/Globulin Ratio (1.0-2.1) Lipase (23-300) U/L Venous Blood Potassium (3.6-5.2) mmol/L Urine Color (YELLOW) Urine Clarity (Clear) Urine pH (5.0-8.0) Ur Specific [place] (1.003-1.030) Urine Protein (NEGATIVE) mg/dL Urine Glucose (UA) (Normal) mg/dL Urine Ketones (NEGATIVE) mg/dL Urine Blood (NEGATIVE) Urine Nitrate (NEGATIVE) Urine Bilirubin (NEGATIVE) Urine Urobilinogen (0.2-1.0) mg/dL Ur Leukocyte Esterase (Negative) Rosita/uL Urine RBC (Auto) (0-3) /hpf Urine Microscopic WBC (0-5) /hpf Ur Squamous Epith Cells (0-5) /hpf Hyaline Casts (0-2) /hpf Influenza Typ A,B (EIA) (NEGATIVE) 04/14/17 04/14/17 04/14/17 Range/Units 07:54 06:42 06:00 WBC 11.6 H (4.8-10.8) K/uL RBC 4.02 (3.80-5.20) Mil/uL Hgb 14.2 (12.0-16.0) g/dL Hct 43.3 (34.0-47.0) % MCV 107.6 H (81.0-99.0) fl MCH 35.2 H (27.0-31.0) pg MCHC 32.7 L (33.0-37.0) g/dL RDW 13.9 (11.5-14.5) % Plt Count 167 (130-400) K/uL MPV 13.1 H (7.2-11.7) fl Gran % Neut % (Auto) 84.3 H (50.0-75.0) % Lymph % (Auto) 4.9 L (20.0-40.0) % [place] % (Auto) 9.0 (0.0-10.0) % Eos % (Auto) 0.1 (0.0-4.0) % Baso % (Auto) 1.7 (0.0-2.0) % Gran # Neut # 9.8 H (1.8-7.0) K/uL Lymph # 0.6 L (1.0-4.3) K/uL [place] # 1.0 H (0.0-0.8) K/uL Eos # 0.0 (0.0-0.7) K/uL Baso # 0.2 (0.0-0.2) K/uL Neutrophils % (Manual) 81 H (42-75) % Band Neutrophils % 3 H (0-2) % Lymphocytes % (Manual) 5 L (20-50) % Monocytes % (Manual) 11 H (0-10) % Myelocytes % (0-0) % Toxic Granulation Present Platelet Estimate Normal (NORMAL) Anisocytosis (manual) Macrocytosis (manual) Slight Tear Drop Cells Slight [place] Cells pCO2 (35-45) mm/Hg pO2 (30-55) mm/Hg HCO3 (21-28) mmol/L ABG pH (7.35-7.45) ABG Total CO2 (22-28) mmol/L ABG O2 Saturation (95-98) % ABG O2 Content (15-23) ML/dL ABG Base Excess (-2.0-3.0) mmol/L ABG Hemoglobin (11.7-17.4) g/dL ABG Carboxyhemoglobin (0.5-1.5) % POC ABG HHb (Measured) (0.0-5.0) % ABG Methemoglobin (0.0-3.0) % ABG O2 Capacity (16-24) mL/dL Kyle Test VBG pH (7.32-7.43) VBG pCO2 (40-60) mmHg VBG HCO3 mmol/L VBG Total CO2 (22-28) mmol/L VBG O2 Sat (Calc) (40-65) % VBG Base Excess (0.0-2.0) mmol/L VBG Potassium (3.6-5.2) mmol/L A-a O2 Difference mm/Hg Hgb O2 Saturation (95.0-98.0) % Sodium (132-148) mmol/L Chloride (98-107) mmol/L Glucose (65-105) mg/dL Lactate (0.7-2.1) mmol/L FiO2 % Blood Gas Comments Crit Value Called To Crit Value Called By Crit Value Read Back Blood Gas Notified Time Potassium (3.6-5.0) MMOL/L Carbon Dioxide (22-30) mmol/L Anion Gap (10-20) BUN (7-17) mg/dl Creatinine (0.7-1.2) mg/dl Est GFR ( Amer) Est GFR (Non-Af Amer) POC Glucose (mg/dL) 199 H 187 H (65-110) mg/dL Random Glucose (65-105) mg/dL Lactic Acid (0.7-2.1) MMOL/L Calcium (8.4-10.2) mg/dL Phosphorus (2.5-4.5) mg/dl Magnesium (1.6-2.3) MG/DL Total Bilirubin (0.2-1.3) mg/dl AST (14-36) U/L ALT (9-52) U/L Alkaline Phosphatase (38-126) U/L Troponin I (0.00-0.120) ng/mL Total Protein (6.3-8.2) G/DL Albumin (3.5-5.0) g/dL Globulin (2.2-3.9) gm/dL Albumin/Globulin Ratio (1.0-2.1) Lipase (23-300) U/L Venous Blood Potassium (3.6-5.2) mmol/L Urine Color (YELLOW) Urine Clarity (Clear) Urine pH (5.0-8.0) Ur Specific [place] (1.003-1.030) Urine Protein (NEGATIVE) mg/dL Urine Glucose (UA) (Normal) mg/dL Urine Ketones (NEGATIVE) mg/dL Urine Blood (NEGATIVE) Urine Nitrate (NEGATIVE) Urine Bilirubin (NEGATIVE) Urine Urobilinogen (0.2-1.0) mg/dL Ur Leukocyte Esterase (Negative) Rosita/uL Urine RBC (Auto) (0-3) /hpf Urine Microscopic WBC (0-5) /hpf Ur Squamous Epith Cells (0-5) /hpf Hyaline Casts (0-2) /hpf Influenza Typ A,B (EIA) (NEGATIVE) 04/14/17 04/14/17 04/14/17 Range/Units 05:38 05:24 04:40 WBC (4.8-10.8) K/uL RBC (3.80-5.20) Mil/uL Hgb (12.0-16.0) g/dL Hct (34.0-47.0) % MCV (81.0-99.0) fl MCH (27.0-31.0) pg MCHC (33.0-37.0) g/dL RDW (11.5-14.5) % Plt Count (130-400) K/uL MPV (7.2-11.7) fl Gran % Neut % (Auto) (50.0-75.0) % Lymph % (Auto) (20.0-40.0) % [place] % (Auto) (0.0-10.0) % Eos % (Auto) (0.0-4.0) % Baso % (Auto) (0.0-2.0) % Gran # Neut # (1.8-7.0) K/uL Lymph # (1.0-4.3) K/uL [place] # (0.0-0.8) K/uL Eos # (0.0-0.7) K/uL Baso # (0.0-0.2) K/uL Neutrophils % (Manual) (42-75) % Band Neutrophils % (0-2) % Lymphocytes % (Manual) (20-50) % Monocytes % (Manual) (0-10) % Myelocytes % (0-0) % Toxic Granulation Platelet Estimate (NORMAL) Anisocytosis (manual) Macrocytosis (manual) Tear Drop Cells [place] Cells pCO2 17 L* (35-45) mm/Hg pO2 101 H (30-55) mm/Hg HCO3 11.3 L (21-28) mmol/L ABG pH 7.25 L (7.35-7.45) ABG Total CO2 8.0 L (22-28) mmol/L ABG O2 Saturation 99.5 H (95-98) % ABG O2 Content 17.9 (15-23) ML/dL ABG Base Excess -17.4 L (-2.0-3.0) mmol/L ABG Hemoglobin 13.1 (11.7-17.4) g/dL ABG Carboxyhemoglobin 1.6 H (0.5-1.5) % POC ABG HHb (Measured) 0.5 (0.0-5.0) % ABG Methemoglobin 1.4 (0.0-3.0) % ABG O2 Capacity 18.0 (16-24) mL/dL Kyle Test Yes VBG pH (7.32-7.43) VBG pCO2 (40-60) mmHg VBG HCO3 mmol/L VBG Total CO2 (22-28) mmol/L VBG O2 Sat (Calc) (40-65) % VBG Base Excess (0.0-2.0) mmol/L VBG Potassium (3.6-5.2) mmol/L A-a O2 Difference 27.0 mm/Hg Hgb O2 Saturation 96.5 (95.0-98.0) % Sodium 140 (132-148) mmol/L Chloride 109 H (98-107) mmol/L Glucose (65-105) mg/dL Lactate (0.7-2.1) mmol/L FiO2 21.0 % Blood Gas Comments Crit Value Called To Maricarmen jay rn Crit Value Called By [id number] Crit Value Read Back Y Blood Gas Notified Time 527 Potassium 4.3 (3.6-5.0) MMOL/L Carbon Dioxide 8 L* D (22-30) mmol/L Anion Gap 27 H (10-20) BUN 6 L (7-17) mg/dl Creatinine 0.7 (0.7-1.2) mg/dl Est GFR ( Amer) > 60 Est GFR (Non-Af Amer) > 60 POC Glucose (mg/dL) 177 H (65-110) mg/dL Random Glucose 213 H (65-105) mg/dL Lactic Acid (0.7-2.1) MMOL/L Calcium 8.3 L (8.4-10.2) mg/dL Phosphorus (2.5-4.5) mg/dl Magnesium (1.6-2.3) MG/DL Total Bilirubin 0.2 (0.2-1.3) mg/dl AST 69 H (14-36) U/L ALT 165 H (9-52) U/L Alkaline Phosphatase 75 (38-126) U/L Troponin I (0.00-0.120) ng/mL Total Protein 6.9 (6.3-8.2) G/DL Albumin 4.0 (3.5-5.0) g/dL Globulin 2.9 (2.2-3.9) gm/dL Albumin/Globulin Ratio 1.4 (1.0-2.1) Lipase (23-300) U/L Venous Blood Potassium (3.6-5.2) mmol/L Urine Color (YELLOW) Urine Clarity (Clear) Urine pH (5.0-8.0) Ur Specific [place] (1.003-1.030) Urine Protein (NEGATIVE) mg/dL Urine Glucose (UA) (Normal) mg/dL Urine Ketones (NEGATIVE) mg/dL Urine Blood (NEGATIVE) Urine Nitrate (NEGATIVE) Urine Bilirubin (NEGATIVE) Urine Urobilinogen (0.2-1.0) mg/dL Ur Leukocyte Esterase (Negative) Rosita/uL Urine RBC (Auto) (0-3) /hpf Urine Microscopic WBC (0-5) /hpf Ur Squamous Epith Cells (0-5) /hpf Hyaline Casts (0-2) /hpf Influenza Typ A,B (EIA) (NEGATIVE) 04/14/17 04/14/17 04/14/17 Range/Units 04:40 04:35 04:23 WBC Cancelled (4.8-10.8) K/uL RBC Cancelled (3.80-5.20) Mil/uL Hgb Cancelled (12.0-16.0) g/dL Hct Cancelled (34.0-47.0) % MCV Cancelled (81.0-99.0) fl MCH Cancelled (27.0-31.0) pg MCHC Cancelled (33.0-37.0) g/dL RDW Cancelled (11.5-14.5) % Plt Count Cancelled (130-400) K/uL MPV Cancelled (7.2-11.7) fl Gran % Cancelled Neut % (Auto) (50.0-75.0) % Lymph % (Auto) Cancelled (20.0-40.0) % [place] % (Auto) Cancelled (0.0-10.0) % Eos % (Auto) Cancelled (0.0-4.0) % Baso % (Auto) Cancelled (0.0-2.0) % Gran # Cancelled Neut # (1.8-7.0) K/uL Lymph # Cancelled (1.0-4.3) K/uL [place] # Cancelled (0.0-0.8) K/uL Eos # Cancelled (0.0-0.7) K/uL Baso # Cancelled (0.0-0.2) K/uL Neutrophils % (Manual) (42-75) % Band Neutrophils % (0-2) % Lymphocytes % (Manual) (20-50) % Monocytes % (Manual) (0-10) % Myelocytes % (0-0) % Toxic Granulation Platelet Estimate (NORMAL) Anisocytosis (manual) Macrocytosis (manual) Tear Drop Cells [place] Cells pCO2 (35-45) mm/Hg pO2 (30-55) mm/Hg HCO3 (21-28) mmol/L ABG pH (7.35-7.45) ABG Total CO2 (22-28) mmol/L ABG O2 Saturation (95-98) % ABG O2 Content (15-23) ML/dL ABG Base Excess (-2.0-3.0) mmol/L ABG Hemoglobin (11.7-17.4) g/dL ABG Carboxyhemoglobin (0.5-1.5) % POC ABG HHb (Measured) (0.0-5.0) % ABG Methemoglobin (0.0-3.0) % ABG O2 Capacity (16-24) mL/dL Kyle Test VBG pH (7.32-7.43) VBG pCO2 (40-60) mmHg VBG HCO3 mmol/L VBG Total CO2 (22-28) mmol/L VBG O2 Sat (Calc) (40-65) % VBG Base Excess (0.0-2.0) mmol/L VBG Potassium (3.6-5.2) mmol/L A-a O2 Difference mm/Hg Hgb O2 Saturation (95.0-98.0) % Sodium (132-148) mmol/L Chloride (98-107) mmol/L Glucose (65-105) mg/dL Lactate (0.7-2.1) mmol/L FiO2 % Blood Gas Comments Crit Value Called To Crit Value Called By Crit Value Read Back Blood Gas Notified Time Potassium (3.6-5.0) MMOL/L Carbon Dioxide (22-30) mmol/L Anion Gap (10-20) BUN (7-17) mg/dl Creatinine (0.7-1.2) mg/dl Est GFR ( Amer) Est GFR (Non-Af Amer) POC Glucose (mg/dL) 213 H (65-110) mg/dL Random Glucose (65-105) mg/dL Lactic Acid 1.3 (0.7-2.1) MMOL/L Calcium (8.4-10.2) mg/dL Phosphorus (2.5-4.5) mg/dl Magnesium (1.6-2.3) MG/DL Total Bilirubin (0.2-1.3) mg/dl AST (14-36) U/L ALT (9-52) U/L Alkaline Phosphatase (38-126) U/L Troponin I (0.00-0.120) ng/mL Total Protein (6.3-8.2) G/DL Albumin (3.5-5.0) g/dL Globulin (2.2-3.9) gm/dL Albumin/Globulin Ratio (1.0-2.1) Lipase (23-300) U/L Venous Blood Potassium (3.6-5.2) mmol/L Urine Color (YELLOW) Urine Clarity (Clear) Urine pH (5.0-8.0) Ur Specific [place] (1.003-1.030) Urine Protein (NEGATIVE) mg/dL Urine Glucose (UA) (Normal) mg/dL Urine Ketones (NEGATIVE) mg/dL Urine Blood (NEGATIVE) Urine Nitrate (NEGATIVE) Urine Bilirubin (NEGATIVE) Urine Urobilinogen (0.2-1.0) mg/dL Ur Leukocyte Esterase (Negative) Rosita/uL Urine RBC (Auto) (0-3) /hpf Urine Microscopic WBC (0-5) /hpf Ur Squamous Epith Cells (0-5) /hpf Hyaline Casts (0-2) /hpf Influenza Typ A,B (EIA) (NEGATIVE) 04/14/17 04/14/17 04/14/17 Range/Units 03:31 02:24 01:39 WBC (4.8-10.8) K/uL RBC (3.80-5.20) Mil/uL Hgb (12.0-16.0) g/dL Hct (34.0-47.0) % MCV (81.0-99.0) fl MCH (27.0-31.0) pg MCHC (33.0-37.0) g/dL RDW (11.5-14.5) % Plt Count (130-400) K/uL MPV (7.2-11.7) fl Gran % Neut % (Auto) (50.0-75.0) % Lymph % (Auto) (20.0-40.0) % [place] % (Auto) (0.0-10.0) % Eos % (Auto) (0.0-4.0) % Baso % (Auto) (0.0-2.0) % Gran # Neut # (1.8-7.0) K/uL Lymph # (1.0-4.3) K/uL [place] # (0.0-0.8) K/uL Eos # (0.0-0.7) K/uL Baso # (0.0-0.2) K/uL Neutrophils % (Manual) (42-75) % Band Neutrophils % (0-2) % Lymphocytes % (Manual) (20-50) % Monocytes % (Manual) (0-10) % Myelocytes % (0-0) % Toxic Granulation Platelet Estimate (NORMAL) Anisocytosis (manual) Macrocytosis (manual) Tear Drop Cells [place] Cells pCO2 (35-45) mm/Hg pO2 (30-55) mm/Hg HCO3 (21-28) mmol/L ABG pH (7.35-7.45) ABG Total CO2 (22-28) mmol/L ABG O2 Saturation (95-98) % ABG O2 Content (15-23) ML/dL ABG Base Excess (-2.0-3.0) mmol/L ABG Hemoglobin (11.7-17.4) g/dL ABG Carboxyhemoglobin (0.5-1.5) % POC ABG HHb (Measured) (0.0-5.0) % ABG Methemoglobin (0.0-3.0) % ABG O2 Capacity (16-24) mL/dL Kyle Test VBG pH (7.32-7.43) VBG pCO2 (40-60) mmHg VBG HCO3 mmol/L VBG Total CO2 (22-28) mmol/L VBG O2 Sat (Calc) (40-65) % VBG Base Excess (0.0-2.0) mmol/L VBG Potassium (3.6-5.2) mmol/L A-a O2 Difference mm/Hg Hgb O2 Saturation (95.0-98.0) % Sodium (132-148) mmol/L Chloride (98-107) mmol/L Glucose (65-105) mg/dL Lactate (0.7-2.1) mmol/L FiO2 % Blood Gas Comments Crit Value Called To Crit Value Called By Crit Value Read Back Blood Gas Notified Time Potassium (3.6-5.0) MMOL/L Carbon Dioxide (22-30) mmol/L Anion Gap (10-20) BUN (7-17) mg/dl Creatinine (0.7-1.2) mg/dl Est GFR ( Amer) Est GFR (Non-Af Amer) POC Glucose (mg/dL) 216 H 235 H 220 H (65-110) mg/dL Random Glucose (65-105) mg/dL Lactic Acid (0.7-2.1) MMOL/L Calcium (8.4-10.2) mg/dL Phosphorus (2.5-4.5) mg/dl Magnesium (1.6-2.3) MG/DL Total Bilirubin (0.2-1.3) mg/dl AST (14-36) U/L ALT (9-52) U/L Alkaline Phosphatase (38-126) U/L Troponin I (0.00-0.120) ng/mL Total Protein (6.3-8.2) G/DL Albumin (3.5-5.0) g/dL Globulin (2.2-3.9) gm/dL Albumin/Globulin Ratio (1.0-2.1) Lipase (23-300) U/L Venous Blood Potassium (3.6-5.2) mmol/L Urine Color (YELLOW) Urine Clarity (Clear) Urine pH (5.0-8.0) Ur Specific [place] (1.003-1.030) Urine Protein (NEGATIVE) mg/dL Urine Glucose (UA) (Normal) mg/dL Urine Ketones (NEGATIVE) mg/dL Urine Blood (NEGATIVE) Urine Nitrate (NEGATIVE) Urine Bilirubin (NEGATIVE) Urine Urobilinogen (0.2-1.0) mg/dL Ur Leukocyte Esterase (Negative) Rosita/uL Urine RBC (Auto) (0-3) /hpf Urine Microscopic WBC (0-5) /hpf Ur Squamous Epith Cells (0-5) /hpf Hyaline Casts (0-2) /hpf Influenza Typ A,B (EIA) (NEGATIVE) 04/14/17 04/14/17 04/14/17 Range/Units 01:00 00:09 00:00 WBC (4.8-10.8) K/uL RBC (3.80-5.20) Mil/uL Hgb (12.0-16.0) g/dL Hct (34.0-47.0) % MCV (81.0-99.0) fl MCH (27.0-31.0) pg MCHC (33.0-37.0) g/dL RDW (11.5-14.5) % Plt Count (130-400) K/uL MPV (7.2-11.7) fl Gran % Neut % (Auto) (50.0-75.0) % Lymph % (Auto) (20.0-40.0) % [place] % (Auto) (0.0-10.0) % Eos % (Auto) (0.0-4.0) % Baso % (Auto) (0.0-2.0) % Gran # Neut # (1.8-7.0) K/uL Lymph # (1.0-4.3) K/uL [place] # (0.0-0.8) K/uL Eos # (0.0-0.7) K/uL Baso # (0.0-0.2) K/uL Neutrophils % (Manual) (42-75) % Band Neutrophils % (0-2) % Lymphocytes % (Manual) (20-50) % Monocytes % (Manual) (0-10) % Myelocytes % (0-0) % Toxic Granulation Platelet Estimate (NORMAL) Anisocytosis (manual) Macrocytosis (manual) Tear Drop Cells [place] Cells pCO2 (35-45) mm/Hg pO2 (30-55) mm/Hg HCO3 (21-28) mmol/L ABG pH (7.35-7.45) ABG Total CO2 (22-28) mmol/L ABG O2 Saturation (95-98) % ABG O2 Content (15-23) ML/dL ABG Base Excess (-2.0-3.0) mmol/L ABG Hemoglobin (11.7-17.4) g/dL ABG Carboxyhemoglobin (0.5-1.5) % POC ABG HHb (Measured) (0.0-5.0) % ABG Methemoglobin (0.0-3.0) % ABG O2 Capacity (16-24) mL/dL Kyle Test VBG pH (7.32-7.43) VBG pCO2 (40-60) mmHg VBG HCO3 mmol/L VBG Total CO2 (22-28) mmol/L VBG O2 Sat (Calc) (40-65) % VBG Base Excess (0.0-2.0) mmol/L VBG Potassium (3.6-5.2) mmol/L A-a O2 Difference mm/Hg Hgb O2 Saturation (95.0-98.0) % Sodium (132-148) mmol/L Chloride (98-107) mmol/L Glucose (65-105) mg/dL Lactate (0.7-2.1) mmol/L FiO2 % Blood Gas Comments Crit Value Called To Crit Value Called By Crit Value Read Back Blood Gas Notified Time Potassium (3.6-5.0) MMOL/L Carbon Dioxide (22-30) mmol/L Anion Gap (10-20) BUN (7-17) mg/dl Creatinine (0.7-1.2) mg/dl Est GFR ( Amer) Est GFR (Non-Af Amer) POC Glucose (mg/dL) 250 H (65-110) mg/dL Random Glucose (65-105) mg/dL Lactic Acid (0.7-2.1) MMOL/L Calcium (8.4-10.2) mg/dL Phosphorus (2.5-4.5) mg/dl Magnesium (1.6-2.3) MG/DL Total Bilirubin (0.2-1.3) mg/dl AST (14-36) U/L ALT (9-52) U/L Alkaline Phosphatase (38-126) U/L Troponin I < 0.0120 (0.00-0.120) ng/mL Total Protein (6.3-8.2) G/DL Albumin (3.5-5.0) g/dL Globulin (2.2-3.9) gm/dL Albumin/Globulin Ratio (1.0-2.1) Lipase (23-300) U/L Venous Blood Potassium (3.6-5.2) mmol/L Urine Color Straw (YELLOW) Urine Clarity Slight-cloudy (Clear) Urine pH 5.0 (5.0-8.0) Ur Specific [place] 1.018 (1.003-1.030) Urine Protein 100 (NEGATIVE) mg/dL Urine Glucose (UA) >500 (Normal) mg/dL Urine Ketones 80 (NEGATIVE) mg/dL Urine Blood Large (NEGATIVE) Urine Nitrate Negative (NEGATIVE) Urine Bilirubin Negative (NEGATIVE) Urine Urobilinogen 0.2 (0.2-1.0) mg/dL Ur Leukocyte Esterase Negative (Negative) Rosita/uL Urine RBC (Auto) 1 (0-3) /hpf Urine Microscopic WBC 1 (0-5) /hpf Ur Squamous Epith Cells 2 (0-5) /hpf Hyaline Casts 3-5 H (0-2) /hpf Influenza Typ A,B (EIA) (NEGATIVE) 04/14/17 04/13/17 04/13/17 Range/Units 00:00 22:44 22:44 WBC 11.2 H (4.8-10.8) K/uL RBC 4.04 (3.80-5.20) Mil/uL Hgb 14.0 (12.0-16.0) g/dL Hct 42.7 (34.0-47.0) % MCV 105.8 H (81.0-99.0) fl MCH 34.8 H (27.0-31.0) pg MCHC 32.8 L (33.0-37.0) g/dL RDW 13.4 (11.5-14.5) % Plt Count 145 (130-400) K/uL MPV 11.1 (7.2-11.7) fl Gran % Neut % (Auto) 85.5 H (50.0-75.0) % Lymph % (Auto) 5.3 L (20.0-40.0) % [place] % (Auto) 8.8 (0.0-10.0) % Eos % (Auto) 0.0 (0.0-4.0) % Baso % (Auto) 0.4 (0.0-2.0) % Gran # Neut # 9.6 H (1.8-7.0) K/uL Lymph # 0.6 L (1.0-4.3) K/uL Fountain # 1.0 H (0.0-0.8) K/uL Eos # 0.0 (0.0-0.7) K/uL Baso # 0.0 (0.0-0.2) K/uL Neutrophils % (Manual) 85 H (42-75) % Band Neutrophils % 2 (0-2) % Lymphocytes % (Manual) 5 L (20-50) % Monocytes % (Manual) 6 (0-10) % Myelocytes % 2 H (0-0) % Toxic Granulation Platelet Estimate Normal (NORMAL) Anisocytosis (manual) Slight Macrocytosis (manual) Tear Drop Cells [place] Cells Slight pCO2 (35-45) mm/Hg pO2 (30-55) mm/Hg HCO3 (21-28) mmol/L ABG pH (7.35-7.45) ABG Total CO2 (22-28) mmol/L ABG O2 Saturation (95-98) % ABG O2 Content (15-23) ML/dL ABG Base Excess (-2.0-3.0) mmol/L ABG Hemoglobin (11.7-17.4) g/dL ABG Carboxyhemoglobin (0.5-1.5) % POC ABG HHb (Measured) (0.0-5.0) % ABG Methemoglobin (0.0-3.0) % ABG O2 Capacity (16-24) mL/dL Kyle Test VBG pH (7.32-7.43) VBG pCO2 (40-60) mmHg VBG HCO3 mmol/L VBG Total CO2 (22-28) mmol/L VBG O2 Sat (Calc) (40-65) % VBG Base Excess (0.0-2.0) mmol/L VBG Potassium (3.6-5.2) mmol/L A-a O2 Difference mm/Hg Hgb O2 Saturation (95.0-98.0) % Sodium 140 (132-148) mmol/L Chloride 105 (98-107) mmol/L Glucose (65-105) mg/dL Lactate (0.7-2.1) mmol/L FiO2 % Blood Gas Comments Crit Value Called To Crit Value Called By Crit Value Read Back Blood Gas Notified Time Potassium 3.7 (3.6-5.0) MMOL/L Carbon Dioxide < 5 L* (22-30) mmol/L Anion Gap 34 H (10-20) BUN 7 (7-17) mg/dl Creatinine 0.7 (0.7-1.2) mg/dl Est GFR ( Amer) > 60 Est GFR (Non-Af Amer) > 60 POC Glucose (mg/dL) (65-110) mg/dL Random Glucose 285 H (65-105) mg/dL Lactic Acid (0.7-2.1) MMOL/L Calcium 8.6 (8.4-10.2) mg/dL Phosphorus 3.2 (2.5-4.5) mg/dl Magnesium 1.9 (1.6-2.3) MG/DL Total Bilirubin 0.3 (0.2-1.3) mg/dl AST 83 H (14-36) U/L ALT 201 H (9-52) U/L Alkaline Phosphatase 87 (38-126) U/L Troponin I < 0.0120 (0.00-0.120) ng/mL Total Protein 7.8 (6.3-8.2) G/DL Albumin 4.6 (3.5-5.0) g/dL Globulin 3.2 (2.2-3.9) gm/dL Albumin/Globulin Ratio 1.5 (1.0-2.1) Lipase 108 (23-300) U/L Venous Blood Potassium (3.6-5.2) mmol/L Urine Color (YELLOW) Urine Clarity (Clear) Urine pH (5.0-8.0) Ur Specific [place] (1.003-1.030) Urine Protein (NEGATIVE) mg/dL Urine Glucose (UA) (Normal) mg/dL Urine Ketones (NEGATIVE) mg/dL Urine Blood (NEGATIVE) Urine Nitrate (NEGATIVE) Urine Bilirubin (NEGATIVE) Urine Urobilinogen (0.2-1.0) mg/dL Ur Leukocyte Esterase (Negative) Rosita/uL Urine RBC (Auto) (0-3) /hpf Urine Microscopic WBC (0-5) /hpf Ur Squamous Epith Cells (0-5) /hpf Hyaline Casts (0-2) /hpf Influenza Typ A,B (EIA) Negative for flu a/b (NEGATIVE) 04/13/17 04/13/17 04/13/17 Range/Units 22:39 22:23 21:56 WBC (4.8-10.8) K/uL RBC (3.80-5.20) Mil/uL Hgb (12.0-16.0) g/dL Hct (34.0-47.0) % MCV (81.0-99.0) fl MCH (27.0-31.0) pg MCHC (33.0-37.0) g/dL RDW (11.5-14.5) % Plt Count (130-400) K/uL MPV (7.2-11.7) fl Gran % Neut % (Auto) (50.0-75.0) % Lymph % (Auto) (20.0-40.0) % [place] % (Auto) (0.0-10.0) % Eos % (Auto) (0.0-4.0) % Baso % (Auto) (0.0-2.0) % Gran # Neut # (1.8-7.0) K/uL Lymph # (1.0-4.3) K/uL [place] # (0.0-0.8) K/uL Eos # (0.0-0.7) K/uL Baso # (0.0-0.2) K/uL Neutrophils % (Manual) (42-75) % Band Neutrophils % (0-2) % Lymphocytes % (Manual) (20-50) % Monocytes % (Manual) (0-10) % Myelocytes % (0-0) % Toxic Granulation Platelet Estimate (NORMAL) Anisocytosis (manual) Macrocytosis (manual) Tear Drop Cells [place] Cells pCO2 11 L* (35-45) mm/Hg pO2 121 H 26 L (30-55) mm/Hg HCO3 6.2 L* (21-28) mmol/L ABG pH 7.10 L* (7.35-7.45) ABG Total CO2 3.7 L (22-28) mmol/L ABG O2 Saturation 100.4 H (95-98) % ABG O2 Content 19.0 (15-23) ML/dL ABG Base Excess -23.9 L (-2.0-3.0) mmol/L ABG Hemoglobin 14.0 (11.7-17.4) g/dL ABG Carboxyhemoglobin 2.4 H (0.5-1.5) % POC ABG HHb (Measured) -0.4 L (0.0-5.0) % ABG Methemoglobin 2.1 (0.0-3.0) % ABG O2 Capacity 18.9 (16-24) mL/dL Kyle Test Yes VBG pH 7.04 L* (7.32-7.43) VBG pCO2 23 L (40-60) mmHg VBG HCO3 5.0 mmol/L VBG Total CO2 6.9 L (22-28) mmol/L VBG O2 Sat (Calc) 50.7 (40-65) % VBG Base Excess -23.0 L (0.0-2.0) mmol/L VBG Potassium 4.4 (3.6-5.2) mmol/L A-a O2 Difference 15.0 mm/Hg Hgb O2 Saturation 95.9 (95.0-98.0) % Sodium 133.0 (132-148) mmol/L Chloride 95.0 L (98-107) mmol/L Glucose 366 H (65-105) mg/dL Lactate 2.2 H (0.7-2.1) mmol/L FiO2 21.0 21.0 % Blood Gas Comments Lactate 2.2 Crit Value Called To melonie Baltazar melissa Crit Value Called By 203 203 Crit Value Read Back Y Y Blood Gas Notified Time 2244 2230 Potassium (3.6-5.0) MMOL/L Carbon Dioxide (22-30) mmol/L Anion Gap (10-20) BUN (7-17) mg/dl Creatinine (0.7-1.2) mg/dl Est GFR ( Amer) Est GFR (Non-Af Amer) POC Glucose (mg/dL) 316 H (65-110) mg/dL Random Glucose (65-105) mg/dL Lactic Acid (0.7-2.1) MMOL/L Calcium (8.4-10.2) mg/dL Phosphorus (2.5-4.5) mg/dl Magnesium (1.6-2.3) MG/DL Total Bilirubin (0.2-1.3) mg/dl AST (14-36) U/L ALT (9-52) U/L Alkaline Phosphatase (38-126) U/L Troponin I (0.00-0.120) ng/mL Total Protein (6.3-8.2) G/DL Albumin (3.5-5.0) g/dL Globulin (2.2-3.9) gm/dL Albumin/Globulin Ratio (1.0-2.1) Lipase (23-300) U/L Venous Blood Potassium 4.4 (3.6-5.2) mmol/L Urine Color (YELLOW) Urine Clarity (Clear) Urine pH (5.0-8.0) Ur Specific [place] (1.003-1.030) Urine Protein (NEGATIVE) mg/dL Urine Glucose (UA) (Normal) mg/dL Urine Ketones (NEGATIVE) mg/dL Urine Blood (NEGATIVE) Urine Nitrate (NEGATIVE) Urine Bilirubin (NEGATIVE) Urine Urobilinogen (0.2-1.0) mg/dL Ur Leukocyte Esterase (Negative) Rosita/uL Urine RBC (Auto) (0-3) /hpf Urine Microscopic WBC (0-5) /hpf Ur Squamous Epith Cells (0-5) /hpf Hyaline Casts (0-2) /hpf Influenza Typ A,B (EIA) (NEGATIVE) Laboratory Results - last 24 hr 04/13/17 04/13/17 04/13/17 21:56 22:23 22:39 WBC RBC Hgb Hct MCV MCH MCHC RDW Plt Count MPV Gran % Neut % (Auto) Lymph % (Auto) [place] % (Auto) Eos % (Auto) Baso % (Auto) Gran # Neut # Lymph # [place] # Eos # Baso # Neutrophils % (Manual) Band Neutrophils % Lymphocytes % (Manual) Monocytes % (Manual) Myelocytes % Toxic Granulation Platelet Estimate Anisocytosis (manual) Macrocytosis (manual) Tear Drop Cells [place] Cells pCO2 11 L* pO2 26 L 121 H HCO3 6.2 L* ABG pH 7.10 L* ABG Total CO2 3.7 L ABG O2 Saturation 100.4 H ABG O2 Content 19.0 ABG Base Excess -23.9 L ABG Hemoglobin 14.0 ABG Carboxyhemoglobin 2.4 H POC ABG HHb (Measured) -0.4 L ABG Methemoglobin 2.1 ABG O2 Capacity 18.9 Kyle Test Yes VBG pH 7.04 L* VBG pCO2 23 L VBG HCO3 5.0 VBG Total CO2 6.9 L VBG O2 Sat (Calc) 50.7 VBG Base Excess -23.0 L VBG Potassium 4.4 A-a O2 Difference 15.0 Hgb O2 Saturation 95.9 Sodium 133.0 Chloride 95.0 L Glucose 366 H Lactate 2.2 H FiO2 21.0 21.0 Blood Gas Comments Lactate 2.2 Crit Value Called To melonie Baltazar melissa Crit Value Called By 203 203 Crit Value Read Back Y Y Blood Gas Notified Time 2230 224 Potassium Carbon Dioxide Anion Gap BUN Creatinine Est GFR ( Amer) Est GFR (Non-Af Amer) POC Glucose (mg/dL) 316 H Random Glucose Lactic Acid Calcium Phosphorus Magnesium Total Bilirubin AST ALT Alkaline Phosphatase Troponin I Total Protein Albumin Globulin Albumin/Globulin Ratio Lipase Venous Blood Potassium 4.4 Urine Color Urine Clarity Urine pH Ur Specific [place] Urine Protein Urine Glucose (UA) Urine Ketones Urine Blood Urine Nitrate Urine Bilirubin Urine Urobilinogen Ur Leukocyte Esterase Urine RBC (Auto) Urine Microscopic WBC Ur Squamous Epith Cells Hyaline Casts Influenza Typ A,B (EIA) 04/13/17 04/13/17 04/14/17 22:44 22:44 00:00 WBC 11.2 H RBC 4.04 Hgb 14.0 Hct 42.7 MCV 105.8 H MCH 34.8 H MCHC 32.8 L RDW 13.4 Plt Count 145 MPV 11.1 Gran % Neut % (Auto) 85.5 H Lymph % (Auto) 5.3 L [place] % (Auto) 8.8 Eos % (Auto) 0.0 Baso % (Auto) 0.4 Gran # Neut # 9.6 H Lymph # 0.6 L [place] # 1.0 H Eos # 0.0 Baso # 0.0 Neutrophils % (Manual) 85 H Band Neutrophils % 2 Lymphocytes % (Manual) 5 L Monocytes % (Manual) 6 Myelocytes % 2 H Toxic Granulation Platelet Estimate Normal Anisocytosis (manual) Slight Macrocytosis (manual) Tear Drop Cells [place] Cells Slight pCO2 pO2 HCO3 ABG pH ABG Total CO2 ABG O2 Saturation ABG O2 Content ABG Base Excess ABG Hemoglobin ABG Carboxyhemoglobin POC ABG HHb (Measured) ABG Methemoglobin ABG O2 Capacity Kyle Test VBG pH VBG pCO2 VBG HCO3 VBG Total CO2 VBG O2 Sat (Calc) VBG Base Excess VBG Potassium A-a O2 Difference Hgb O2 Saturation Sodium 140 Chloride 105 Glucose Lactate FiO2 Blood Gas Comments Crit Value Called To Crit Value Called By Crit Value Read Back Blood Gas Notified Time Potassium 3.7 Carbon Dioxide < 5 L* Anion Gap 34 H BUN 7 Creatinine 0.7 Est GFR ( Amer) > 60 Est GFR (Non-Af Amer) > 60 POC Glucose (mg/dL) Random Glucose 285 H Lactic Acid Calcium 8.6 Phosphorus 3.2 Magnesium 1.9 Total Bilirubin 0.3 AST 83 H ALT 201 H Alkaline Phosphatase 87 Troponin I < 0.0120 Total Protein 7.8 Albumin 4.6 Globulin 3.2 Albumin/Globulin Ratio 1.5 Lipase 108 Venous Blood Potassium Urine Color Urine Clarity Urine pH Ur Specific [place] Urine Protein Urine Glucose (UA) Urine Ketones Urine Blood Urine Nitrate Urine Bilirubin Urine Urobilinogen Ur Leukocyte Esterase Urine RBC (Auto) Urine Microscopic WBC Ur Squamous Epith Cells Hyaline Casts Influenza Typ A,B (EIA) Negative for flu a/b 04/14/17 04/14/17 04/14/17 00:00 00:09 01:00 WBC RBC Hgb Hct MCV MCH MCHC RDW Plt Count MPV Gran % Neut % (Auto) Lymph % (Auto) [place] % (Auto) Eos % (Auto) Baso % (Auto) Gran # Neut # Lymph # [place] # Eos # Baso # Neutrophils % (Manual) Band Neutrophils % Lymphocytes % (Manual) Monocytes % (Manual) Myelocytes % Toxic Granulation Platelet Estimate Anisocytosis (manual) Macrocytosis (manual) Tear Drop Cells [place] Cells pCO2 pO2 HCO3 ABG pH ABG Total CO2 ABG O2 Saturation ABG O2 Content ABG Base Excess ABG Hemoglobin ABG Carboxyhemoglobin POC ABG HHb (Measured) ABG Methemoglobin ABG O2 Capacity Kyle Test VBG pH VBG pCO2 VBG HCO3 VBG Total CO2 VBG O2 Sat (Calc) VBG Base Excess VBG Potassium A-a O2 Difference Hgb O2 Saturation Sodium Chloride Glucose Lactate FiO2 Blood Gas Comments Crit Value Called To Crit Value Called By Crit Value Read Back Blood Gas Notified Time Potassium Carbon Dioxide Anion Gap BUN Creatinine Est GFR ( Amer) Est GFR (Non-Af Amer) POC Glucose (mg/dL) 250 H Random Glucose Lactic Acid Calcium Phosphorus Magnesium Total Bilirubin AST ALT Alkaline Phosphatase Troponin I < 0.0120 Total Protein Albumin Globulin Albumin/Globulin Ratio Lipase Venous Blood Potassium Urine Color Straw Urine Clarity Slight-cloudy Urine pH 5.0 Ur Specific [place] 1.018 Urine Protein 100 Urine Glucose (UA) >500 Urine Ketones 80 Urine Blood Large Urine Nitrate Negative Urine Bilirubin Negative Urine Urobilinogen 0.2 Ur Leukocyte Esterase Negative Urine RBC (Auto) 1 Urine Microscopic WBC 1 Ur Squamous Epith Cells 2 Hyaline Casts 3-5 H Influenza Typ A,B (EIA) 04/14/17 04/14/17 04/14/17 01:39 02:24 03:31 WBC RBC Hgb Hct MCV MCH MCHC RDW Plt Count MPV Gran % Neut % (Auto) Lymph % (Auto) [place] % (Auto) Eos % (Auto) Baso % (Auto) Gran # Neut # Lymph # [place] # Eos # Baso # Neutrophils % (Manual) Band Neutrophils % Lymphocytes % (Manual) Monocytes % (Manual) Myelocytes % Toxic Granulation Platelet Estimate Anisocytosis (manual) Macrocytosis (manual) Tear Drop Cells [place] Cells pCO2 pO2 HCO3 ABG pH ABG Total CO2 ABG O2 Saturation ABG O2 Content ABG Base Excess ABG Hemoglobin ABG Carboxyhemoglobin POC ABG HHb (Measured) ABG Methemoglobin ABG O2 Capacity Kyle Test VBG pH VBG pCO2 VBG HCO3 VBG Total CO2 VBG O2 Sat (Calc) VBG Base Excess VBG Potassium A-a O2 Difference Hgb O2 Saturation Sodium Chloride Glucose Lactate FiO2 Blood Gas Comments Crit Value Called To Crit Value Called By Crit Value Read Back Blood Gas Notified Time Potassium Carbon Dioxide Anion Gap BUN Creatinine Est GFR ( Amer) Est GFR (Non-Af Amer) POC Glucose (mg/dL) 220 H 235 H 216 H Random Glucose Lactic Acid Calcium Phosphorus Magnesium Total Bilirubin AST ALT Alkaline Phosphatase Troponin I Total Protein Albumin Globulin Albumin/Globulin Ratio Lipase Venous Blood Potassium Urine Color Urine Clarity Urine pH Ur Specific [place] Urine Protein Urine Glucose (UA) Urine Ketones Urine Blood Urine Nitrate Urine Bilirubin Urine Urobilinogen Ur Leukocyte Esterase Urine RBC (Auto) Urine Microscopic WBC Ur Squamous Epith Cells Hyaline Casts Influenza Typ A,B (EIA) 04/14/17 04/14/17 04/14/17 04:23 04:35 04:40 WBC Cancelled RBC Cancelled Hgb Cancelled Hct Cancelled MCV Cancelled MCH Cancelled MCHC Cancelled RDW Cancelled Plt Count Cancelled MPV Cancelled Gran % Cancelled Neut % (Auto) Lymph % (Auto) Cancelled [place] % (Auto) Cancelled Eos % (Auto) Cancelled Baso % (Auto) Cancelled Gran # Cancelled Neut # Lymph # Cancelled [place] # Cancelled Eos # Cancelled Baso # Cancelled Neutrophils % (Manual) Band Neutrophils % Lymphocytes % (Manual) Monocytes % (Manual) Myelocytes % Toxic Granulation Platelet Estimate Anisocytosis (manual) Macrocytosis (manual) Tear Drop Cells [place] Cells pCO2 pO2 HCO3 ABG pH ABG Total CO2 ABG O2 Saturation ABG O2 Content ABG Base Excess ABG Hemoglobin ABG Carboxyhemoglobin POC ABG HHb (Measured) ABG Methemoglobin ABG O2 Capacity Kyle Test VBG pH VBG pCO2 VBG HCO3 VBG Total CO2 VBG O2 Sat (Calc) VBG Base Excess VBG Potassium A-a O2 Difference Hgb O2 Saturation Sodium Chloride Glucose Lactate FiO2 Blood Gas Comments Crit Value Called To Crit Value Called By Crit Value Read Back Blood Gas Notified Time Potassium Carbon Dioxide Anion Gap BUN Creatinine Est GFR ( Amer) Est GFR (Non-Af Amer) POC Glucose (mg/dL) 213 H Random Glucose Lactic Acid 1.3 Calcium Phosphorus Magnesium Total Bilirubin AST ALT Alkaline Phosphatase Troponin I Total Protein Albumin Globulin Albumin/Globulin Ratio Lipase Venous Blood Potassium Urine Color Urine Clarity Urine pH Ur Specific [place] Urine Protein Urine Glucose (UA) Urine Ketones Urine Blood Urine Nitrate Urine Bilirubin Urine Urobilinogen Ur Leukocyte Esterase Urine RBC (Auto) Urine Microscopic WBC Ur Squamous Epith Cells Hyaline Casts Influenza Typ A,B (EIA) 04/14/17 04/14/17 04/14/17 04:40 05:24 05:38 WBC RBC Hgb Hct MCV MCH MCHC RDW Plt Count MPV Gran % Neut % (Auto) Lymph % (Auto) [place] % (Auto) Eos % (Auto) Baso % (Auto) Gran # Neut # Lymph # [place] # Eos # Baso # Neutrophils % (Manual) Band Neutrophils % Lymphocytes % (Manual) Monocytes % (Manual) Myelocytes % Toxic Granulation Platelet Estimate Anisocytosis (manual) Macrocytosis (manual) Tear Drop Cells [place] Cells pCO2 17 L* pO2 101 H HCO3 11.3 L ABG pH 7.25 L ABG Total CO2 8.0 L ABG O2 Saturation 99.5 H ABG O2 Content 17.9 ABG Base Excess -17.4 L ABG Hemoglobin 13.1 ABG Carboxyhemoglobin 1.6 H POC ABG HHb (Measured) 0.5 ABG Methemoglobin 1.4 ABG O2 Capacity 18.0 Kyle Test Yes VBG pH VBG pCO2 VBG HCO3 VBG Total CO2 VBG O2 Sat (Calc) VBG Base Excess VBG Potassium A-a O2 Difference 27.0 Hgb O2 Saturation 96.5 Sodium 140 Chloride 109 H Glucose Lactate FiO2 21.0 Blood Gas Comments Crit Value Called To Maricarmen jay rn Crit Value Called By 6075 Crit Value Read Back Y Blood Gas Notified Time 527 Potassium 4.3 Carbon Dioxide 8 L* D Anion Gap 27 H BUN 6 L Creatinine 0.7 Est GFR ( Amer) > 60 Est GFR (Non-Af Amer) > 60 POC Glucose (mg/dL) 177 H Random Glucose 213 H Lactic Acid Calcium 8.3 L Phosphorus Magnesium Total Bilirubin 0.2 AST 69 H ALT 165 H Alkaline Phosphatase 75 Troponin I Total Protein 6.9 Albumin 4.0 Globulin 2.9 Albumin/Globulin Ratio 1.4 Lipase Venous Blood Potassium Urine Color Urine Clarity Urine pH Ur Specific [place] Urine Protein Urine Glucose (UA) Urine Ketones Urine Blood Urine Nitrate Urine Bilirubin Urine Urobilinogen Ur Leukocyte Esterase Urine RBC (Auto) Urine Microscopic WBC Ur Squamous Epith Cells Hyaline Casts Influenza Typ A,B (EIA) 04/14/17 04/14/17 04/14/17 06:00 06:42 07:54 WBC 11.6 H RBC 4.02 Hgb 14.2 Hct 43.3 MCV 107.6 H MCH 35.2 H MCHC 32.7 L RDW 13.9 Plt Count 167 MPV 13.1 H Gran % Neut % (Auto) 84.3 H Lymph % (Auto) 4.9 L [place] % (Auto) 9.0 Eos % (Auto) 0.1 Baso % (Auto) 1.7 Gran # Neut # 9.8 H Lymph # 0.6 L [place] # 1.0 H Eos # 0.0 Baso # 0.2 Neutrophils % (Manual) 81 H Band Neutrophils % 3 H Lymphocytes % (Manual) 5 L Monocytes % (Manual) 11 H Myelocytes % Toxic Granulation Present Platelet Estimate Normal Anisocytosis (manual) Macrocytosis (manual) Slight Tear Drop Cells Slight [place] Cells pCO2 pO2 HCO3 ABG pH ABG Total CO2 ABG O2 Saturation ABG O2 Content ABG Base Excess ABG Hemoglobin ABG Carboxyhemoglobin POC ABG HHb (Measured) ABG Methemoglobin ABG O2 Capacity Kyle Test VBG pH VBG pCO2 VBG HCO3 VBG Total CO2 VBG O2 Sat (Calc) VBG Base Excess VBG Potassium A-a O2 Difference Hgb O2 Saturation Sodium Chloride Glucose Lactate FiO2 Blood Gas Comments Crit Value Called To Crit Value Called By Crit Value Read Back Blood Gas Notified Time Potassium Carbon Dioxide Anion Gap BUN Creatinine Est GFR ( Amer) Est GFR (Non-Af Amer) POC Glucose (mg/dL) 187 H 199 H Random Glucose Lactic Acid Calcium Phosphorus Magnesium Total Bilirubin AST ALT Alkaline Phosphatase Troponin I Total Protein Albumin Globulin Albumin/Globulin Ratio Lipase Venous Blood Potassium Urine Color Urine Clarity Urine pH Ur Specific [place] Urine Protein Urine Glucose (UA) Urine Ketones Urine Blood Urine Nitrate Urine Bilirubin Urine Urobilinogen Ur Leukocyte Esterase Urine RBC (Auto) Urine Microscopic WBC Ur Squamous Epith Cells Hyaline Casts Influenza Typ A,B (EIA) 04/14/17 04/14/17 04/14/17 09:01 10:05 11:04 WBC RBC Hgb Hct MCV MCH MCHC RDW Plt Count MPV Gran % Neut % (Auto) Lymph % (Auto) [place] % (Auto) Eos % (Auto) Baso % (Auto) Gran # Neut # Lymph # [place] # Eos # Baso # Neutrophils % (Manual) Band Neutrophils % Lymphocytes % (Manual) Monocytes % (Manual) Myelocytes % Toxic Granulation Platelet Estimate Anisocytosis (manual) Macrocytosis (manual) Tear Drop Cells [place] Cells pCO2 pO2 HCO3 ABG pH ABG Total CO2 ABG O2 Saturation ABG O2 Content ABG Base Excess ABG Hemoglobin ABG Carboxyhemoglobin POC ABG HHb (Measured) ABG Methemoglobin ABG O2 Capacity Kyle Test VBG pH VBG pCO2 VBG HCO3 VBG Total CO2 VBG O2 Sat (Calc) VBG Base Excess VBG Potassium A-a O2 Difference Hgb O2 Saturation Sodium Chloride Glucose Lactate FiO2 Blood Gas Comments Crit Value Called To Crit Value Called By Crit Value Read Back Blood Gas Notified Time Potassium Carbon Dioxide Anion Gap BUN Creatinine Est GFR ( Amer) Est GFR (Non-Af Amer) POC Glucose (mg/dL) 209 H 210 H 206 H Random Glucose Lactic Acid Calcium Phosphorus Magnesium Total Bilirubin AST ALT Alkaline Phosphatase Troponin I Total Protein Albumin Globulin Albumin/Globulin Ratio Lipase Venous Blood Potassium Urine Color Urine Clarity Urine pH Ur Specific [place] Urine Protein Urine Glucose (UA) Urine Ketones Urine Blood Urine Nitrate Urine Bilirubin Urine Urobilinogen Ur Leukocyte Esterase Urine RBC (Auto) Urine Microscopic WBC Ur Squamous Epith Cells Hyaline Casts Influenza Typ A,B (EIA) EKG/Cardiology Studies: Cardiology / EKG Studies 04/13/17 21:55 ELECTROCARDIOGRAM Stat Comment: Mode Of Transportation: Reason For Exam: chest pain Fingerstick Blood Sugar Results: 210 Review of Systems - Review of Systems All systems: reviewed and no additional remarkable complaints except - Gastrointestinal Gastrointestinal: absent: Abdominal Pain, Nausea, Vomiting (nothing) Critical Care Progress Note - Nutrition Nutrition: Nutrition Category Date Time Status NPO Diet [DIET] Diets 04/13/17 Breakfast Active Assessment/Plan (1) Diabetic keto-acidosis Assessment and plan: 42yo M. PMHx DM2, HTN. p/w DKA. CV: hemodynamially stable. Endo: still on insulin drip, gap hasn't closed yet. D51/2NS+20KCL@100. Will transition to long acting and SC insulin once gap closes and CO2>16. Dr. Wright - Endocrinology following. Critical Care time 35 minutes Current Visit: Yes Status: Acute
[2017-04-14] MEDS: Enoxaparin 40 mg Syringe SC SCH (13:43)
[2017-04-14 20:44] LABS: BLOOD UREA NITROGEN 4 mg/dl (7-17); CALCIUM 8.7 mg/dL (8.4-10.2); GFR AFRICAN-AMERICAN > 60; GFR NON-AFRICAN AMERICAN > 60
--- NOTE | 2017-04-14 21:48 | CARD ---
APPROVED REPORT EKG Measurement Heart [id number] <Conclusion> Sinus tachycardia Otherwise normal ECG
[2017-04-14] MEDS ORDERED: Insulin Regular 100 units/ml SC ONE (21:53)
[2017-04-14] MEDS ORDERED: Insulin Regular 100 units/ml SC SCH (23:00)
[2017-04-15 05:26] LABS: HEMOGLOBIN 13.9 g/dL (12.0-16.0); MEAN CELL VOLUME 103.4 fl (81.0-99.0); MEAN CORPUSCULAR HEMOGLOBIN 34.5 pg (27.0-31.0); MEAN CORPUSCULAR HGB CONC 33.4 g/dL (33.0-37.0); RBC 4.03 Mil/uL (3.80-5.20); RED CELL DISTRIBUTION WIDTH 12.6 % (11.5-14.5); WHITE BLOOD COUNT 8.5 K/uL (4.8-10.8)
[2017-04-15] MEDS: Potassium Ch 20mEq in D5-1/2NS 1,000 ML IV SCH (06:00)
[2017-04-15 06:27] LABS: ALB/GLOB RATIO 1.3 (1.0-2.1); ALBUMIN 3.9 g/dL (3.5-5.0); ALT/SGPT 127 U/L (9-52); AST/SGOT 43 U/L (14-36); BLOOD UREA NITROGEN 3 mg/dl (7-17); CALCIUM 9.3 mg/dL (8.4-10.2); GFR AFRICAN-AMERICAN > 60; GFR NON-AFRICAN AMERICAN > 60
[2017-04-15] MEDS: Insulin Lispro (humaLOG) 100 Units/ml Inj SC SCH ×7 (06:58→21:52)
--- NOTE | 2017-04-15 07:58 | CP.PCM.PN ---
Subjective - Date & Time of Evaluation Date of Evaluation: 04/15/17 Time of Evaluation: 07:57 - Subjective Subjective: pt in bed, doing well, no f/c, n/v/d. hr 80s, bp wnl. bw noted, lft still elevated, anion gap 21. insulin gtt dc Objective - Vital Signs/Intake and Output Vital Signs (last 24 hours): Temp Pulse Resp BP Pulse Ox 98.9 F 86 25 H 125/70 98 04/15/17 04:00 04/15/17 06:00 04/15/17 06:00 04/15/17 06:00 04/15/17 06:00 Intake and Output: 04/15/17 04/15/17 06:59 18:59 Intake Total 1226 240 Output Total 700 Balance 1226 -460 - Medications Medications: Current Medications Dicyclomine HCl (Bentyl) 10 mg PO QID PRN PRN Reason: abd cramping Enalapril Maleate (Vasotec) 5 mg PO DAILY [facility] Last Admin: 04/14/17 08:44 Dose: 5 mg Enoxaparin Sodium (Lovenox) 40 mg SC DAILY [facility] PRN Reason: Protocol Last Admin: 04/14/17 13:43 Dose: 40 mg Famotidine (Pepcid) 20 mg PO BID [facility] Potassium Chloride/Dextrose/Sod Cl (Potassium Chl 20 Meq In D5-1/2ns) 1,000 mls @ 100 mls/hr IV .Q10H [facility] Stop: 04/15/17 09:51 Last Admin: 04/15/17 06:00 Dose: 100 mls/hr Potassium Chloride 10 meq/ (Sodium Chloride) 55 mls @ 55 mls/hr IV Q1 [facility] Stop: 04/15/17 11:59 Insulin Detemir (Levemir) 20 units SC HS [facility] Insulin Human Lispro (Humalog) 6 units SC AC [facility] Insulin Human Lispro (Humalog) 0 units SC ACHS [facility] PRN Reason: Protocol Last Admin: 04/15/17 06:58 Dose: Not Given Metoclopramide HCl (Reglan) 10 mg IVP Q6 PRN PRN Reason: Nausea/Vomiting Last Admin: 04/14/17 05:53 Dose: 10 mg Ondansetron HCl (Zofran Inj) 4 mg IVP Q6H PRN PRN Reason: Nausea/Vomiting Last Admin: 04/14/17 02:37 Dose: 4 mg - Labs Labs: 04/15/17 04:30 04/15/17 04:30 - Constitutional Appears: Well, Non-toxic, No Acute Distress - Head Exam Head Exam: ATRAUMATIC, NORMAL INSPECTION, NORMOCEPHALIC - Eye Exam Eye Exam: EOMI, Normal appearance, PERRL Pupil Exam: NORMAL ACCOMODATION, PERRL - ENT Exam ENT Exam: Mucous Membranes Moist, Normal Exam - Neck Exam Neck Exam: Full ROM, Normal Inspection. absent: Lymphadenopathy - Respiratory Exam Respiratory Exam: Clear to Ausculation Bilateral, NORMAL BREATHING PATTERN - Cardiovascular Exam Cardiovascular Exam: REGULAR RHYTHM, RRR, +S1, +S2. absent: Murmur - GI/Abdominal Exam GI & Abdominal Exam: Soft, Normal Bowel Sounds. absent: Tenderness - Extremities Exam Extremities Exam: Full ROM, Normal Capillary Refill, Normal Inspection. absent : Joint Swelling, Pedal Edema - Back Exam Back Exam: NORMAL INSPECTION - Neurological Exam Neurological Exam: Alert, Awake, CN II-XII Intact, Normal Gait, Oriented x3 - Psychiatric Exam Psychiatric exam: Normal Affect, Normal Mood - Skin Skin Exam: Dry, Intact, Normal Color, Warm Assessment and Plan (1) AGE (acute gastroenteritis) Status: Acute (2) DVT prophylaxis Status: Acute (3) Diabetic keto-acidosis Status: Acute - Assessment and Plan (Free Text) Assessment: (1) AGE (acute gastroenteritis) Assessment and Plan: pepcid, zofran, bentyl ivf lucie po Status: Acute (2) DVT prophylaxis Assessment and Plan: scd and ae hose ambulation Status: Acute (3) Diabetic keto-acidosis Assessment and Plan: icu admission, d5 1/2, insulin ss hold home meds for now fsbg q6h Status: Acute
[2017-04-15] MEDS: Enoxaparin 40 mg Syringe SC SCH (08:53)
--- NOTE | 2017-04-15 12:00 | CP.CCUPN ---
CCU Subjective - Physician Review Subjective (Free Text): Awake and alert, denies any nausea, new aches nor any new discomfort. Still on IVFs, denies any focal weakness or tremors. Off insulin drip and started on Levemir. Other vitals and I/O's reviewed. ROS: No other pertinent negs or positives on 10+ system review. PMSFH: All other Nursing and physician documentation reviewed to date; no new pertinent info noted relevant to current medical problems. IMPRESSION / MAJOR PROBLEMS NOW: 1. DKA- still persistent today. 2. Hypokalemia 3. Mild Transaminasemia 2 DKA. PLAN: 1. K supplementation, may need magnesium as well. Check Mag / Phos l;evels. 2. Continue IVFs. Ensure Accucheck monitoring to at least Q6-Q4H as tolerated. 3. Keep in ICU for today. CCU Objective - Vital Signs / Intake & Output Vital Signs (Last 4 hours): Vital Signs Temp Pulse BP 04/15/17 10:00 92 H 115/67 04/15/17 08:00 99.1 F Intake and Output (Last 8hrs): Intake & Output 04/14/17 04/15/17 04/15/17 22:59 06:59 14:59 Intake Total 306 920 640 Output Total 400 1200 Balance -94 920 -560 Weight 139 lb Intake: IV 306 800 200 Intake, Piggyback 200 Oral 120 240 Output: Urine 400 1200 Urine, Voided 400 1200 Other: # Voids Urine, Voided 2 - Physical Exam Head: Positive for: Atraumatic, Normocephalic Pupils: Positive for: PERRL Extroacular Muscles: Positive for: EOMI Conjunctiva: Positive for: Normal Ears: Positive for: Normal Mouth: Positive for: Moist Mucous Membranes Respiratory/Chest: Positive for: Clear to Auscultation, Good Air Exchange Cardiovascular: Positive for: Regular Rate and Rhythm Abdomen: Positive for: Normal Bowel Sounds. Negative for: Tenderness, Distention Lower Extremity: Positive for: Normal Inspection Neurological: Positive for: GCS=15, Motor Func Grossly Intact Skin: Positive for: Warm, Dry. Negative for: Rashes Psychiatric: Positive for: Alert, Oriented x 3 - Medications Active Medications: Active Medications Generic Name Dose Route Start Last Admin Trade Name Freq PRN Reason Stop Dose Admin Dicyclomine HCl 10 mg 04/14/17 08:07 Bentyl PO QID PRN abd cramping Enalapril Maleate 5 mg 04/14/17 09:00 04/15/17 08:56 Vasotec PO 5 mg DAILY [facility] Administration Enoxaparin Sodium 40 mg 04/14/17 13:00 04/15/17 08:53 Lovenox SC 40 mg DAILY [facility] Administration Protocol Famotidine 20 mg 04/15/17 09:00 04/15/17 08:55 Pepcid PO 20 mg BID [facility] Administration Insulin Detemir 20 units 04/15/17 22:00 Levemir SC HS [facility] Insulin Human Lispro 6 units 04/15/17 07:30 04/15/17 11:45 Humalog SC 6 units AC [facility] Administration Insulin Human Lispro 0 units 04/15/17 07:30 04/15/17 11:10 Humalog SC Not Given ACHS KA[facility]AL Protocol Metoclopramide HCl 10 mg 04/14/17 05:37 04/14/17 05:53 Reglan IVP 10 mg Q6 PRN Administration Nausea/Vomiting Ondansetron HCl 4 mg 04/13/17 23:13 04/14/17 02:37 Zofran Inj IVP 4 mg Q6H PRN Administration Nausea/Vomiting - Patient Studies Lab Studies: Lab Studies 04/15/17 04/15/17 04/15/17 Range/Units 11:05 06:42 05:27 WBC (4.8-10.8) K/uL RBC (3.80-5.20) Mil/uL Hgb (12.0-16.0) g/dL Hct (34.0-47.0) % MCV (81.0-99.0) fl MCH (27.0-31.0) pg MCHC (33.0-37.0) g/dL RDW (11.5-14.5) % Plt Count (130-400) K/uL Sodium (132-148) mmol/l Potassium (3.6-5.0) MMOL/L Chloride (98-107) mmol/L Carbon Dioxide (22-30) mmol/L Anion Gap (10-20) BUN (7-17) mg/dl Creatinine (0.7-1.2) mg/dl Est GFR ( Amer) Est GFR (Non-Af Amer) POC Glucose (mg/dL) 286 H 291 H 306 H (65-110) mg/dL Random Glucose (65-105) mg/dL Hemoglobin A1c (4.2-6.5) % Calcium (8.4-10.2) mg/dL Total Bilirubin (0.2-1.3) mg/dl AST (14-36) U/L ALT (9-52) U/L Alkaline Phosphatase (38-126) U/L Total Protein (6.3-8.2) G/DL Albumin (3.5-5.0) g/dL Globulin (2.2-3.9) gm/dL Albumin/Globulin Ratio (1.0-2.1) 04/15/17 04/15/17 04/15/17 Range/Units 04:30 04:30 04:30 WBC 8.5 (4.8-10.8) K/uL RBC 4.03 (3.80-5.20) Mil/uL Hgb 13.9 (12.0-16.0) g/dL Hct 41.7 (34.0-47.0) % MCV 103.4 H D (81.0-99.0) fl MCH 34.5 H (27.0-31.0) pg MCHC 33.4 (33.0-37.0) g/dL RDW 12.6 (11.5-14.5) % Plt Count 141 (130-400) K/uL Sodium 140 (132-148) mmol/l Potassium 3.3 L (3.6-5.0) MMOL/L Chloride 106 (98-107) mmol/L Carbon Dioxide 16 L (22-30) mmol/L Anion Gap 21 H (10-20) BUN 3 L (7-17) mg/dl Creatinine 0.5 L (0.7-1.2) mg/dl Est GFR ( Amer) > 60 Est GFR (Non-Af Amer) > 60 POC Glucose (mg/dL) (65-110) mg/dL Random Glucose 255 H (65-105) mg/dL Hemoglobin A1c 12.5 H (4.2-6.5) % Calcium 9.3 (8.4-10.2) mg/dL Total Bilirubin 0.4 (0.2-1.3) mg/dl AST 43 H D (14-36) U/L ALT 127 H D (9-52) U/L Alkaline Phosphatase 84 (38-126) U/L Total Protein 6.9 (6.3-8.2) G/DL Albumin 3.9 (3.5-5.0) g/dL Globulin 3.0 (2.2-3.9) gm/dL Albumin/Globulin Ratio 1.3 (1.0-2.1) 04/14/17 04/14/17 04/14/17 Range/Units 22:04 21:04 20:06 WBC (4.8-10.8) K/uL RBC (3.80-5.20) Mil/uL Hgb (12.0-16.0) g/dL Hct (34.0-47.0) % MCV (81.0-99.0) fl MCH (27.0-31.0) pg MCHC (33.0-37.0) g/dL RDW (11.5-14.5) % Plt Count (130-400) K/uL Sodium (132-148) mmol/l Potassium (3.6-5.0) MMOL/L Chloride (98-107) mmol/L Carbon Dioxide (22-30) mmol/L Anion Gap (10-20) BUN (7-17) mg/dl Creatinine (0.7-1.2) mg/dl Est GFR ( Amer) Est GFR (Non-Af Amer) POC Glucose (mg/dL) 209 H 195 H 194 H (65-110) mg/dL Random Glucose (65-105) mg/dL Hemoglobin A1c (4.2-6.5) % Calcium (8.4-10.2) mg/dL Total Bilirubin (0.2-1.3) mg/dl AST (14-36) U/L ALT (9-52) U/L Alkaline Phosphatase (38-126) U/L Total Protein (6.3-8.2) G/DL Albumin (3.5-5.0) g/dL Globulin (2.2-3.9) gm/dL Albumin/Globulin Ratio (1.0-2.1) 04/14/17 04/14/17 04/14/17 Range/Units 19:54 18:59 18:05 WBC (4.8-10.8) K/uL RBC (3.80-5.20) Mil/uL Hgb (12.0-16.0) g/dL Hct (34.0-47.0) % MCV (81.0-99.0) fl MCH (27.0-31.0) pg MCHC (33.0-37.0) g/dL RDW (11.5-14.5) % Plt Count (130-400) K/uL Sodium 138 (132-148) mmol/l Potassium 4.3 (3.6-5.0) MMOL/L Chloride 106 (98-107) mmol/L Carbon Dioxide 18 L (22-30) mmol/L Anion Gap 18 (10-20) BUN 4 L (7-17) mg/dl Creatinine 0.5 L (0.7-1.2) mg/dl Est GFR ( Amer) > 60 Est GFR (Non-Af Amer) > 60 POC Glucose (mg/dL) 183 H 184 H (65-110) mg/dL Random Glucose 202 H (65-105) mg/dL Hemoglobin A1c (4.2-6.5) % Calcium 8.7 (8.4-10.2) mg/dL Total Bilirubin (0.2-1.3) mg/dl AST (14-36) U/L ALT (9-52) U/L Alkaline Phosphatase (38-126) U/L Total Protein (6.3-8.2) G/DL Albumin (3.5-5.0) g/dL Globulin (2.2-3.9) gm/dL Albumin/Globulin Ratio (1.0-2.1) 04/14/17 04/14/17 04/14/17 Range/Units 17:03 15:58 15:03 WBC (4.8-10.8) K/uL RBC (3.80-5.20) Mil/uL Hgb (12.0-16.0) g/dL Hct (34.0-47.0) % MCV (81.0-99.0) fl MCH (27.0-31.0) pg MCHC (33.0-37.0) g/dL RDW (11.5-14.5) % Plt Count (130-400) K/uL Sodium (132-148) mmol/l Potassium (3.6-5.0) MMOL/L Chloride (98-107) mmol/L Carbon Dioxide (22-30) mmol/L Anion Gap (10-20) BUN (7-17) mg/dl Creatinine (0.7-1.2) mg/dl Est GFR ( Amer) Est GFR (Non-Af Amer) POC Glucose (mg/dL) 198 H 222 H 215 H (65-110) mg/dL Random Glucose (65-105) mg/dL Hemoglobin A1c (4.2-6.5) % Calcium (8.4-10.2) mg/dL Total Bilirubin (0.2-1.3) mg/dl AST (14-36) U/L ALT (9-52) U/L Alkaline Phosphatase (38-126) U/L Total Protein (6.3-8.2) G/DL Albumin (3.5-5.0) g/dL Globulin (2.2-3.9) gm/dL Albumin/Globulin Ratio (1.0-2.1) 04/14/17 04/14/17 Range/Units 15:03 13:29 WBC (4.8-10.8) K/uL RBC (3.80-5.20) Mil/uL Hgb (12.0-16.0) g/dL Hct (34.0-47.0) % MCV (81.0-99.0) fl MCH (27.0-31.0) pg MCHC (33.0-37.0) g/dL RDW (11.5-14.5) % Plt Count (130-400) K/uL Sodium (132-148) mmol/l Potassium (3.6-5.0) MMOL/L Chloride (98-107) mmol/L Carbon Dioxide (22-30) mmol/L Anion Gap (10-20) BUN (7-17) mg/dl Creatinine (0.7-1.2) mg/dl Est GFR ( Amer) Est GFR (Non-Af Amer) POC Glucose (mg/dL) 215 H 188 H (65-110) mg/dL Random Glucose (65-105) mg/dL Hemoglobin A1c (4.2-6.5) % Calcium (8.4-10.2) mg/dL Total Bilirubin (0.2-1.3) mg/dl AST (14-36) U/L ALT (9-52) U/L Alkaline Phosphatase (38-126) U/L Total Protein (6.3-8.2) G/DL Albumin (3.5-5.0) g/dL Globulin (2.2-3.9) gm/dL Albumin/Globulin Ratio (1.0-2.1) Laboratory Results - last 24 hr 04/14/17 04/14/17 04/14/17 13:29 15:03 15:03 WBC RBC Hgb Hct MCV MCH MCHC RDW Plt Count Sodium Potassium Chloride Carbon Dioxide Anion Gap BUN Creatinine Est GFR ( Amer) Est GFR (Non-Af Amer) POC Glucose (mg/dL) 188 H 215 H 215 H Random Glucose Hemoglobin A1c Calcium Total Bilirubin AST ALT Alkaline Phosphatase Total Protein Albumin Globulin Albumin/Globulin Ratio 04/14/17 04/14/17 04/14/17 15:58 17:03 18:05 WBC RBC Hgb Hct MCV MCH MCHC RDW Plt Count Sodium Potassium Chloride Carbon Dioxide Anion Gap BUN Creatinine Est GFR ( Amer) Est GFR (Non-Af Amer) POC Glucose (mg/dL) 222 H 198 H 184 H Random Glucose Hemoglobin A1c Calcium Total Bilirubin AST ALT Alkaline Phosphatase Total Protein Albumin Globulin Albumin/Globulin Ratio 04/14/17 04/14/17 04/14/17 18:59 19:54 20:06 WBC RBC Hgb Hct MCV MCH MCHC RDW Plt Count Sodium 138 Potassium 4.3 Chloride 106 Carbon Dioxide 18 L Anion Gap 18 BUN 4 L Creatinine 0.5 L Est GFR ( Amer) > 60 Est GFR (Non-Af Amer) > 60 POC Glucose (mg/dL) 183 H 194 H Random Glucose 202 H Hemoglobin A1c Calcium 8.7 Total Bilirubin AST ALT Alkaline Phosphatase Total Protein Albumin Globulin Albumin/Globulin Ratio 04/14/17 04/14/17 04/15/17 21:04 22:04 04:30 WBC 8.5 RBC 4.03 Hgb 13.9 Hct 41.7 MCV 103.4 H D MCH 34.5 H MCHC 33.4 RDW 12.6 Plt Count 141 Sodium Potassium Chloride Carbon Dioxide Anion Gap BUN Creatinine Est GFR ( Amer) Est GFR (Non-Af Amer) POC Glucose (mg/dL) 195 H 209 H Random Glucose Hemoglobin A1c Calcium Total Bilirubin AST ALT Alkaline Phosphatase Total Protein Albumin Globulin Albumin/Globulin Ratio 04/15/17 04/15/17 04/15/17 04:30 04:30 05:27 WBC RBC Hgb Hct MCV MCH MCHC RDW Plt Count Sodium 140 Potassium 3.3 L Chloride 106 Carbon Dioxide 16 L Anion Gap 21 H BUN 3 L Creatinine 0.5 L Est GFR ( Amer) > 60 Est GFR (Non-Af Amer) > 60 POC Glucose (mg/dL) 306 H Random Glucose 255 H Hemoglobin A1c 12.5 H Calcium 9.3 Total Bilirubin 0.4 AST 43 H D ALT 127 H D Alkaline Phosphatase 84 Total Protein 6.9 Albumin 3.9 Globulin 3.0 Albumin/Globulin Ratio 1.3 04/15/17 04/15/17 06:42 11:05 WBC RBC Hgb Hct MCV MCH MCHC RDW Plt Count Sodium Potassium Chloride Carbon Dioxide Anion Gap BUN Creatinine Est GFR ( Amer) Est GFR (Non-Af Amer) POC Glucose (mg/dL) 291 H 286 H Random Glucose Hemoglobin A1c Calcium Total Bilirubin AST ALT Alkaline Phosphatase Total Protein Albumin Globulin Albumin/Globulin Ratio Fingerstick Blood Sugar Results: 289 Review of Systems - Review of Systems All systems: reviewed and no additional remarkable complaints except (as above) Critical Care Progress Note - Nutrition Nutrition: Nutrition Category Date Time Status Heart Healthy Diet [DIET] Diets 04/14/17 Dinner Active
[2017-04-15] MEDS ORDERED: Insulin Lispro (humaLOG) 100 Units/ml Inj SC SCH (16:48)
[2017-04-15] MEDS ORDERED: Potassium Ch 20mEq in D5-1/2NS 1,000 ML IV SCH ×2 (19:30→23:45)
[2017-04-15] MEDS ORDERED: Insulin Detemir 100 Units/ml Inj SC SCH ×2 (22:00)
[2017-04-16 05:17] LABS: BASO # 0.1 K/uL (0.0-0.2); BASO % 1.1 % (0.0-2.0); EOS % 0.4 % (0.0-4.0); HEMOGLOBIN 13.3 g/dL (12.0-16.0); LYMPH # 1.6 K/uL (1.0-4.3); LYMPH % 25.7 % (20.0-40.0); MEAN CELL VOLUME 101.3 fl (81.0-99.0); MEAN CORPUSCULAR HEMOGLOBIN 35.1 pg (27.0-31.0); MEAN CORPUSCULAR HGB CONC 34.7 g/dL (33.0-37.0); MEAN PLATELET VOLUME 10.1 fl (7.2-11.7); MONO # 0.7 K/uL (0.0-0.8); MONO % 11.8 % (0.0-10.0); NEUT # 3.8 K/uL (1.8-7.0); RBC 3.78 Mil/uL (3.80-5.20); RED CELL DISTRIBUTION WIDTH 12.7 % (11.5-14.5); WHITE BLOOD COUNT 6.3 K/uL (4.8-10.8)
[2017-04-16 05:44] LABS: ALB/GLOB RATIO 1.2 (1.0-2.1); ALBUMIN 3.5 g/dL (3.5-5.0); ALT/SGPT 103 U/L (9-52); AST/SGOT 43 U/L (14-36); BLOOD UREA NITROGEN 3 mg/dl (7-17); CALCIUM 9.2 mg/dL (8.4-10.2); GFR AFRICAN-AMERICAN > 60; GFR NON-AFRICAN AMERICAN > 60
--- NOTE | 2017-04-16 06:09 | CON ---
DATE: ENDOCRINOLOGY CONSULT LOCATION: ICU, room 426. HISTORY OF PRESENT ILLNESS: This is a 42-year-old female with known history of type-2 insulin-requiring diabetes, presenting here with generalized body weakness and marked hyperglycemic accelerations with supervening diffuse abdominal pain, and is now being referred for diabetic evaluation and management. PAST MEDICAL HISTORY: As mentioned above, history of type-2 insulin-requiring diabetes, currently on a combination of Lantus given as 30 units subcu at bedtime with Humalog given as 10 units b.i.d. with meals, history of hypertension and dyslipidemia. FAMILY HISTORY: Positive for diabetes and hypertension. SOCIAL HISTORY: The patient has a supportive family. Admits to smoking half a pack a day for 7 years now. REVIEW OF SYSTEMS: Admits to generalized body weakness with easy fatigability and tiredness, and progressive bouts of dizziness and lightheadedness, worse on the day of admission. No chest pains or palpitations or PNDs. Her oral intake has been variable with nausea, dyspepsia and intractable vomiting episodes, and supervening diffuse abdominal pain. Also admits to marked polyuria and nocturia as noted. PHYSICAL EXAMINATION: GENERAL: This is an average-built female, in no apparent distress. VITAL SIGNS: Blood pressure of 140/70, pulse of 70 beats per minute - regular, temperature 99, respirations 20. HEENT: Head normocephalic. Eyes anicteric with pink conjunctivae. Funduscopy not possible at this time. Ears, nose and throat otherwise normal. NECK: Supple. Thyroid gland is normal in size. No carotid bruits or any cervical adenopathy. CARDIOPULMONARY: Adynamic precordium. S1, S2 is rapid and regular. LUNGS: Clear to auscultation. ABDOMEN: Flat, soft with positive bowel sounds. EXTREMITIES: No peripheral edema. Pulses are +2 bilaterally. LABORATORY DATA: Her chemistry showed a BUN of 3, sodium 140, potassium 3.3, chloride 106, CO2 16, glucose 255, and creatinine 0.5. Her A1c is 12.5%. The glucose levels range from 291-306 mg/dL. ASSESSMENT: This is a 42-year-old female with uncontrolled and decompensated type-2 insulin-requiring diabetes, presenting here with diabetic ketoacidosis and dehydration, and is now being referred for diabetic evaluation and management. PLAN OF MANAGEMENT: As the insulin drip infusion has been discontinued, then we will switch her over to a more physiologic basal and bolus insulin drug combination as ordered, with Levemir to be given at 26 units subcu at bedtime daily, and we will titrate incrementally as indicated to optimize metabolic control. We will also add Humalog given as 8 units subcu t.i.d. before meals as ordered. We will modify the coverage scale to obviate hypoglycemia and detailed orders have been given. More importantly, the patient needs vigorous IV hydration and we will increase the IV fluid rate to 150 mL/hour as ordered. We have to resolve the metabolic acidosis with vigorous IV hydration and concomitant intensive insulin therapy. We will initiate diabetic education and dietary instructions also at time of this admission. We will obtain serial chemistries and supplement accordingly needed. Lou Wright MD
[2017-04-16] MEDS: Insulin Lispro (humaLOG) 100 Units/ml Inj SC SCH ×7 (06:33→21:26)
--- NOTE | 2017-04-16 07:50 | CP.PCM.PN ---
Subjective - Date & Time of Evaluation Date of Evaluation: 04/16/17 Time of Evaluation: 07:50 - Subjective Subjective: pt doing well, no f/c, n/v/d bw noted. c/o r flank pain no dysuria. case d/c w/ dr mixon Objective - Vital Signs/Intake and Output Vital Signs (last 24 hours): Temp Pulse Resp BP Pulse Ox 98.2 F 78 15 138/81 99 04/16/17 04:00 04/16/17 06:00 04/16/17 06:00 04/16/17 06:00 04/16/17 06:00 Intake and Output: 04/16/17 04/16/17 06:59 18:59 Intake Total 1850 Balance 1850 - Medications Medications: Current Medications Dicyclomine HCl (Bentyl) 10 mg PO QID PRN PRN Reason: abd cramping Enalapril Maleate (Vasotec) 5 mg PO DAILY [facility] Last Admin: 04/15/17 08:56 Dose: 5 mg Enoxaparin Sodium (Lovenox) 40 mg SC DAILY [facility] PRN Reason: Protocol Last Admin: 04/15/17 08:53 Dose: 40 mg Famotidine (Pepcid) 20 mg PO BID [facility] Last Admin: 04/15/17 17:06 Dose: 20 mg Magnesium Sulfate 1 gm/ Sodium (Chloride) 102 mls @ 102 mls/hr IV ONCE [facility] PRN Reason: 1 GM/HR Last Admin: 04/15/17 15:05 Dose: 102 mls/hr Potassium Chloride/Dextrose/Sod Cl (Potassium Chl 20 Meq In D5-1/2ns) 1,000 mls @ 100 mls/hr IV .Q10H [facility] Stop: 04/16/17 19:24 Last Admin: 04/15/17 22:34 Dose: 100 mls/hr Potassium Chloride/Dextrose/Sod Cl (Potassium Chl 20 Meq In D5-1/2ns) 1,000 mls @ 150 mls/hr IV .Q6H40M [facility] Stop: 04/16/17 23:40 Last Admin: 04/16/17 06:32 Dose: 150 mls/hr Insulin Detemir (Levemir) 26 units SC HS [facility] Last Admin: 04/15/17 22:32 Dose: 26 units Insulin Human Lispro (Humalog) 0 units SC ACHS [facility] PRN Reason: Protocol Last Admin: 04/16/17 06:33 Dose: Not Given Insulin Human Lispro (Humalog) 14 units SC AC [facility] Last Admin: 04/16/17 07:29 Dose: 14 units Ketorolac Tromethamine (Toradol) 15 mg IVP Q6 PRN PRN Reason: pain 6-10 Metoclopramide HCl (Reglan) 10 mg IVP Q6 PRN PRN Reason: Nausea/Vomiting Last Admin: 04/14/17 05:53 Dose: 10 mg Ondansetron HCl (Zofran Inj) 4 mg IVP Q6H PRN PRN Reason: Nausea/Vomiting Last Admin: 04/14/17 02:37 Dose: 4 mg - Labs Labs: 04/16/17 05:06 04/16/17 05:06 - Constitutional Appears: Well, Non-toxic, No Acute Distress - Head Exam Head Exam: ATRAUMATIC, NORMAL INSPECTION, NORMOCEPHALIC - Eye Exam Eye Exam: EOMI, Normal appearance, PERRL Pupil Exam: NORMAL ACCOMODATION, PERRL - ENT Exam ENT Exam: Mucous Membranes Moist, Normal Exam - Neck Exam Neck Exam: Full ROM, Normal Inspection. absent: Lymphadenopathy - Respiratory Exam Respiratory Exam: Clear to Ausculation Bilateral, NORMAL BREATHING PATTERN - Cardiovascular Exam Cardiovascular Exam: REGULAR RHYTHM, RRR, +S1, +S2. absent: Murmur - GI/Abdominal Exam GI & Abdominal Exam: Soft, Normal Bowel Sounds. absent: Tenderness - Extremities Exam Extremities Exam: Full ROM, Normal Capillary Refill, Normal Inspection. absent : Joint Swelling, Pedal Edema - Back Exam Back Exam: NORMAL INSPECTION - Neurological Exam Neurological Exam: Alert, Awake, CN II-XII Intact, Normal Gait, Oriented x3 - Psychiatric Exam Psychiatric exam: Normal Affect, Normal Mood - Skin Skin Exam: Dry, Intact, Normal Color, Warm Assessment and Plan (1) AGE (acute gastroenteritis) Status: Acute (2) DVT prophylaxis Status: Acute (3) Diabetic keto-acidosis Status: Acute - Assessment and Plan (Free Text) Assessment: (1) AGE (acute gastroenteritis) Assessment and Plan: pepcid, zofran, bentyl ivf lucie po Status: Acute (2) DVT prophylaxis Assessment and Plan: scd and ae hose ambulation Status: Acute (3) Diabetic keto-acidosis Assessment and Plan: icu admission, d5 1/2, insulin ss hold home meds for now fsbg q6h for possible downgrade today Status: Acute 4-flank pain-muscular vs kidney pain, ua w/ c/s, toradol. furthe rworkup, imaging based upon ua.
[2017-04-16] MEDS: Enoxaparin 40 mg Syringe SC SCH (10:19)
[2017-04-16 11:41] LABS: SQUAMOUS EPITHIAL 1 /hpf (0-5); URINE BACTERIA RARE (<OCC); URINE BILIRUBIN NEGATIVE (NEGATIVE); URINE BLOOD MODERATE (NEGATIVE); URINE CLARITY CLOUDY (Clear); URINE COLOR YELLOW (YELLOW); URINE GLUCOSE (UA) >=500 mg/dL (Normal); URINE LEUKOCYTE ESTERASE TRACE Leu/uL (Negative); URINE NITRATE NEGATIVE (NEGATIVE); URINE PROTEIN NEGATIVE (NEGATIVE); URINE UROBILINOGEN 0.2-1.0 mg/dL (0.2-1.0)
[2017-04-16] MEDS: Sodium Chloride 0.45% 1,000 ML IV SCH (17:50)
--- NOTE | 2017-04-16 19:42 | PN ---
DATE: ENDOCRINOLOGY FOLLOWUP NOTE LOCATION: Room 662. SUBJECTIVE: This is a 42-year-old female with recent uncontrolled type 2 insulin-requiring diabetes, presenting here with diabetic ketoacidosis and dehydration and is now improving clinically and metabolically as noted thereof. Her oral intake has improved as per the staff and her glycemic fluctuations are also improving at this time with the latest glucose levels ranging from 169-259 mg/dL. Her latest chemistry showed a BUN of , sodium 137, potassium 4.1, chloride 106, CO2 of 22, glucose 303, and creatinine 0.5. So, at this time, we will modify once again her basal and bolus insulin regimen and increase the Levemir to 32 units subcu at bedtime daily to start tonight. We will also increase the Humalog given at mealtimes to 14 units subcu t.i.d. before meals to start at dinnertime today as ordered. We will also continue the low-dose correction scale using Humalog insulin as given. We will titrate incrementally as indicated to optimize metabolic control. We will follow and advise accordingly. Lou Wright MD
[2017-04-16] MEDS: Insulin Detemir 100 Units/ml Inj SC SCH (21:24)
[2017-04-17] MEDS: Sodium Chloride 0.45% 1,000 ML IV SCH ×2 (04:14→15:18)
[2017-04-17] MEDS: Insulin Lispro (humaLOG) 100 Units/ml Inj SC SCH ×7 (06:36→22:10)
[2017-04-17 07:43] LABS: BASO % 0.7 % (0.0-2.0); EOS % 1.1 % (0.0-4.0); HEMOGLOBIN 12.3 g/dL (12.0-16.0); LYMPH # 1.4 K/uL (1.0-4.3); MEAN CORPUSCULAR HEMOGLOBIN 34.8 pg (27.0-31.0); MEAN CORPUSCULAR HGB CONC 34.5 g/dL (33.0-37.0); MEAN PLATELET VOLUME 10.5 fl (7.2-11.7); MONO # 0.5 K/uL (0.0-0.8); NEUT # 2.5 K/uL (1.8-7.0); NEUT % 55.2 % (50.0-75.0); NRBC % 0.1 % (0.0-0.0); RBC 3.52 Mil/uL (3.80-5.20); RED CELL DISTRIBUTION WIDTH 12.6 % (11.5-14.5); WHITE BLOOD COUNT 4.5 K/uL (4.8-10.8)
--- NOTE | 2017-04-17 07:49 | CP.PCM.PN ---
Subjective - Date & Time of Evaluation Date of Evaluation: 04/17/17 Time of Evaluation: 07:48 - Subjective Subjective: no f/c, w/ some nausea/dizziness this am. glucose 160s, no pain. back pain less. ua wnl. advised stretching, oob, walking am labs pending Objective - Vital Signs/Intake and Output Vital Signs (last 24 hours): Temp Pulse Resp BP Pulse Ox 98.0 F 91 H 19 115/77 95 04/17/17 00:00 04/17/17 00:00 04/17/17 00:00 04/17/17 00:00 04/17/17 00:00 - Medications Medications: Current Medications Dicyclomine HCl (Bentyl) 10 mg PO QID PRN PRN Reason: abd cramping Enalapril Maleate (Vasotec) 5 mg PO DAILY [facility] Last Admin: 04/16/17 10:20 Dose: 5 mg Enoxaparin Sodium (Lovenox) 40 mg SC DAILY [facility] PRN Reason: Protocol Last Admin: 04/16/17 10:19 Dose: 40 mg Famotidine (Pepcid) 20 mg PO BID [facility] Last Admin: 04/16/17 17:52 Dose: 20 mg Magnesium Sulfate 1 gm/ Sodium (Chloride) 102 mls @ 102 mls/hr IV ONCE [facility] PRN Reason: 1 GM/HR Last Admin: 04/15/17 15:05 Dose: 102 mls/hr Sodium Chloride (Sodium Chloride 0.45%) 1,000 mls @ 100 mls/hr IV .Q10H [facility] Stop: 04/17/17 17:12 Last Admin: 04/17/17 04:14 Dose: 100 mls/hr Insulin Detemir (Levemir) 32 units SC HS [facility] Last Admin: 04/16/17 21:24 Dose: 32 u Insulin Human Lispro (Humalog) 0 units SC ACHS [facility] PRN Reason: Protocol Last Admin: 04/17/17 06:36 Dose: Not Given Insulin Human Lispro (Humalog) 14 units SC AC [facility] Last Admin: 04/16/17 17:51 Dose: 14 units Ketorolac Tromethamine (Toradol) 15 mg IVP Q6 PRN PRN Reason: pain 6-10 Last Admin: 04/16/17 17:57 Dose: 15 mg Metoclopramide HCl (Reglan) 10 mg IVP Q6 PRN PRN Reason: Nausea/Vomiting Last Admin: 04/14/17 05:53 Dose: 10 mg Ondansetron HCl (Zofran Inj) 4 mg IVP Q6H PRN PRN Reason: Nausea/Vomiting Last Admin: 04/17/17 07:13 Dose: 4 mg - Labs Labs: 04/16/17 05:06 04/16/17 05:06 - Constitutional Appears: Well, Non-toxic, No Acute Distress - Head Exam Head Exam: ATRAUMATIC, NORMAL INSPECTION, NORMOCEPHALIC - Eye Exam Eye Exam: EOMI, Normal appearance, PERRL Pupil Exam: NORMAL ACCOMODATION, PERRL - ENT Exam ENT Exam: Mucous Membranes Moist, Normal Exam - Neck Exam Neck Exam: Full ROM, Normal Inspection. absent: Lymphadenopathy - Respiratory Exam Respiratory Exam: Clear to Ausculation Bilateral, NORMAL BREATHING PATTERN - Cardiovascular Exam Cardiovascular Exam: REGULAR RHYTHM, RRR, +S1, +S2. absent: Murmur - GI/Abdominal Exam GI & Abdominal Exam: Soft, Normal Bowel Sounds. absent: Tenderness - Extremities Exam Extremities Exam: Full ROM, Normal Capillary Refill, Normal Inspection. absent : Joint Swelling, Pedal Edema - Back Exam Back Exam: NORMAL INSPECTION - Neurological Exam Neurological Exam: Alert, Awake, CN II-XII Intact, Normal Gait, Oriented x3 - Psychiatric Exam Psychiatric exam: Normal Affect, Normal Mood - Skin Skin Exam: Dry, Intact, Normal Color, Warm Assessment and Plan (1) AGE (acute gastroenteritis) Status: Acute (2) DVT prophylaxis Status: Acute (3) Diabetic keto-acidosis Status: Acute - Assessment and Plan (Free Text) Assessment: (1) AGE (acute gastroenteritis) Assessment and Plan: pepcid, zofran, bentyl ivf lucie po Status: Acute (2) DVT prophylaxis Assessment and Plan: scd and ae hose ambulation Status: Acute (3) Diabetic keto-acidosis Assessment and Plan: downgrade to m/s yesterday, ivf insulin ss hold home meds for now will resume home meds when not nauseated fsbg q6h for possible downgrade today Status: Acute 4-flank pain-muscular vs kidney pain, ua w/ c/s, toradol. furthe rworkup, imaging based upon ua.
[2017-04-17 08:00] LABS: ALBUMIN 2.8 g/dL (3.5-5.0); ALT/SGPT 76 U/L (9-52); AST/SGOT 30 U/L (14-36); BLOOD UREA NITROGEN 5 mg/dl (7-17); CALCIUM 8.8 mg/dL (8.4-10.2); GFR AFRICAN-AMERICAN > 60; GFR NON-AFRICAN AMERICAN > 60
[2017-04-17] MEDS: Enoxaparin 40 mg Syringe SC SCH (08:25)
[2017-04-17] MEDS: Insulin Detemir 100 Units/ml Inj SC SCH (22:00)
[2017-04-17] MEDS ORDERED: Insulin Detemir 100 Units/ml Inj SC SCH (22:06)
--- NOTE | 2017-04-18 00:44 | PN ---
DATE: ENDOCRINOLOGY FOLLOWUP NOTE LOCATION: Room 662. SUBJECTIVE: This is a 42-year-old female with recent uncontrolled type 2 insulin-requiring diabetes, presenting here with marked hyperglycemic accelerations and is now being followed closely for metabolic management. Her glycemic levels are fluctuating, but much improved at this time and the latest glucose levels have ranged from 64-131 and 155 mg/dL. It was 278 at bedtime tonight and it was 165 pre breakfast this morning as noted. Her latest chemistry showed a BUN of 5, sodium 141, potassium 3.4, chloride 107, CO2 of 28, glucose 136 and creatinine 0.5. So at this time, we will modify once again her basal and bolus insulin regimen to optimize metabolic control and increase the Levemir to 30 units subcu at bedtime daily as ordered. We will also lower the Humalog down to 6 units subcu t.i.d. before meals as given. We will continue the low-dose correction scale using Humalog insulin as ordered. We will follow and advise accordingly. Lou Wright MD
--- NOTE | 2017-04-18 07:52 | CP.PCM.PN ---
Subjective - Date & Time of Evaluation Date of Evaluation: 04/18/17 Time of Evaluation: 07:50 - Subjective Subjective: pt doing well, still mild nausea w/o vomiting. no f/c. no pain. am labs pending. glucose noted. Objective - Vital Signs/Intake and Output Vital Signs (last 24 hours): Temp Pulse Resp BP Pulse Ox 98.2 F 82 20 111/75 98 04/18/17 07:48 04/18/17 07:48 04/18/17 07:48 04/18/17 07:48 04/18/17 07:48 - Medications Medications: Current Medications Dicyclomine HCl (Bentyl) 10 mg PO QID PRN PRN Reason: abd cramping Enalapril Maleate (Vasotec) 5 mg PO DAILY [facility] Last Admin: 04/17/17 08:26 Dose: 5 mg Famotidine (Pepcid) 20 mg PO BID [facility] Last Admin: 04/17/17 17:22 Dose: 20 mg Magnesium Sulfate 1 gm/ Sodium (Chloride) 102 mls @ 102 mls/hr IV ONCE [facility] PRN Reason: 1 GM/HR Last Admin: 04/15/17 15:05 Dose: 102 mls/hr Insulin Detemir (Levemir) 30 units SC HS [facility] Last Admin: 04/17/17 22:47 Dose: 30 units Insulin Human Lispro (Humalog) 0 units SC ACHS [facility] PRN Reason: Protocol Last Admin: 04/17/17 22:10 Dose: Not Given Insulin Human Lispro (Humalog) 6 units SC AC [facility] Last Admin: 04/17/17 17:24 Dose: 6 units Ketorolac Tromethamine (Toradol) 15 mg IVP Q6 PRN PRN Reason: pain 6-10 Last Admin: 04/17/17 18:21 Dose: 15 mg Metoclopramide HCl (Reglan) 10 mg IVP Q6 PRN PRN Reason: Nausea/Vomiting Last Admin: 04/14/17 05:53 Dose: 10 mg Ondansetron HCl (Zofran Inj) 4 mg IVP Q6H PRN PRN Reason: Nausea/Vomiting Last Admin: 04/18/17 01:26 Dose: 4 mg - Labs Labs: 04/17/17 06:15 04/17/17 06:15 - Constitutional Appears: Well, Non-toxic, No Acute Distress - Head Exam Head Exam: ATRAUMATIC, NORMAL INSPECTION, NORMOCEPHALIC - Eye Exam Eye Exam: EOMI, Normal appearance, PERRL Pupil Exam: NORMAL ACCOMODATION, PERRL - ENT Exam ENT Exam: Mucous Membranes Moist, Normal Exam - Neck Exam Neck Exam: Full ROM, Normal Inspection. absent: Lymphadenopathy - Respiratory Exam Respiratory Exam: Clear to Ausculation Bilateral, NORMAL BREATHING PATTERN - Cardiovascular Exam Cardiovascular Exam: REGULAR RHYTHM, RRR, +S1, +S2. absent: Murmur - GI/Abdominal Exam GI & Abdominal Exam: Soft, Normal Bowel Sounds. absent: Tenderness - Extremities Exam Extremities Exam: Full ROM, Normal Capillary Refill, Normal Inspection. absent : Joint Swelling, Pedal Edema - Back Exam Back Exam: NORMAL INSPECTION - Neurological Exam Neurological Exam: Alert, Awake, CN II-XII Intact, Normal Gait, Oriented x3 - Psychiatric Exam Psychiatric exam: Normal Affect, Normal Mood - Skin Skin Exam: Dry, Intact, Normal Color, Warm Assessment and Plan (1) AGE (acute gastroenteritis) Status: Acute (2) DVT prophylaxis Status: Acute (3) Diabetic keto-acidosis Status: Acute - Assessment and Plan (Free Text) Assessment: (1) AGE (acute gastroenteritis) Assessment and Plan: pepcid, zofran, bentyl ivf lucie small amt po Status: Acute (2) DVT prophylaxis Assessment and Plan: scd and ae hose ambulation Status: Acute (3) Diabetic keto-acidosis Assessment and Plan: downgrade to m/s yesterday, ivf insulin ss hold home meds for now will resume home meds when not nauseated fsbg q6h Status: Acute 4-flank pain-muscular vs kidney pain, ua w/ c/s, toradol. furthe rworkup, imaging based upon ua. no further c/o pain, urine w/ yeast, no s/s yeast infection
[2017-04-18] MEDS: Insulin Lispro (humaLOG) 100 Units/ml Inj SC SCH ×7 (08:39→22:29)
[2017-04-18 10:30] LABS: EOS # 0.1 K/uL (0.0-0.7); EOS % 1.3 % (0.0-4.0); HEMOGLOBIN 11.2 g/dL (12.0-16.0); LYMPH # 1.1 K/uL (1.0-4.3); MEAN CORPUSCULAR HEMOGLOBIN 33.4 pg (27.0-31.0); MEAN CORPUSCULAR HGB CONC 32.4 g/dL (33.0-37.0); MEAN PLATELET VOLUME 10.7 fl (7.2-11.7); MONO # 0.5 K/uL (0.0-0.8); MONO % 11.3 % (0.0-10.0); NEUT # 2.5 K/uL (1.8-7.0); NEUT % 60.4 % (50.0-75.0); RBC 3.36 Mil/uL (3.80-5.20); WHITE BLOOD COUNT 4.2 K/uL (4.8-10.8)
[2017-04-18 10:48] LABS: MEAN CELL VOLUME 103.2 fl (81.0-99.0)
[2017-04-18 11:18] LABS: ALB/GLOB RATIO 1.1 (1.0-2.1); ALBUMIN 2.8 g/dL (3.5-5.0); ALT/SGPT 78 U/L (9-52); AST/SGOT 38 U/L (14-36); BLOOD UREA NITROGEN 7 mg/dl (7-17); CALCIUM 8.9 mg/dL (8.4-10.2); GFR AFRICAN-AMERICAN > 60; GFR NON-AFRICAN AMERICAN > 60
[2017-04-18] MEDS ORDERED: Insulin Detemir 100 Units/ml Inj SC SCH (22:00)
--- NOTE | 2017-04-18 23:30 | PN ---
DATE: ENDOCRINE FOLLOWUP NOTE LOCATION: Room 662. SUBJECTIVE: This is a 42-year-old female with recent uncontrolled type 2 insulin-requiring diabetes, presenting here with diabetic ketoacidosis and dehydration and has since then improved clinically and metabolically as noted thereof. She received intense insulin therapy with an insulin drip infusion and also vigorous IV hydration as given. Her latest glucose levels today have ranged from 139 to 194 mg/dL. It was 278 at bedtime last night. The latest chemistry shows a BUN of 7, sodium 141, potassium 3.9, chloride 103, CO2 of 26, glucose 233, and creatinine 0.5. So, at this time, we will continue the same Humalog insulin as given at 6 units subcu t.i.d. before meals as ordered. We will continue the low-dose correction scale using Humalog insulin as given. We will, however, titrate her basal insulin to Levemir given as 32 units subcu at bedtime daily to start tonight. We will obtain serial chemistries and supplement accordingly as needed. We will also continue the IV hydration as given and obtain serial chemistries accordingly. Lou Wright MD
[2017-04-19] MEDS: Insulin Lispro (humaLOG) 100 Units/ml Inj SC SCH ×7 (07:15→21:48)
[2017-04-19 10:01] LABS: BASO % 0.3 % (0.0-2.0); EOS % 0.5 % (0.0-4.0); HEMOGLOBIN 12.2 g/dL (12.0-16.0); LYMPH # 1.1 K/uL (1.0-4.3); LYMPH % 15.9 % (20.0-40.0); MEAN CELL VOLUME 103.1 fl (81.0-99.0); MEAN CORPUSCULAR HEMOGLOBIN 33.1 pg (27.0-31.0); MEAN CORPUSCULAR HGB CONC 32.1 g/dL (33.0-37.0); MEAN PLATELET VOLUME 10.1 fl (7.2-11.7); MONO % 14.5 % (0.0-10.0); NEUT # 4.6 K/uL (1.8-7.0); NEUT % 68.8 % (50.0-75.0); RBC 3.7 Mil/uL (3.80-5.20); RED CELL DISTRIBUTION WIDTH 13.1 % (11.5-14.5); WHITE BLOOD COUNT 6.6 K/uL (4.8-10.8)
--- NOTE | 2017-04-19 10:17 | CP.PCM.PN ---
Subjective - Date & Time of Evaluation Date of Evaluation: 04/19/17 Time of Evaluation: 10:17 - Subjective Subjective: pt had bout of ruq/periumbilical pain yesterday and this am. no further n/v. lucie small amt of bland po. denies f/c, n/v/d. am cbc noted, cmp pending, us completed but report pending. some pain w/ palp of ruq. Objective - Vital Signs/Intake and Output Vital Signs (last 24 hours): Temp Pulse Resp BP Pulse Ox 97.3 F L 87 20 127/81 97 04/19/17 07:46 04/19/17 07:46 04/19/17 07:46 04/19/17 07:46 04/19/17 07:46 - Medications Medications: Current Medications Dicyclomine HCl (Bentyl) 10 mg PO QID PRN PRN Reason: abd cramping Last Admin: 04/19/17 09:09 Dose: 10 mg Enalapril Maleate (Vasotec) 5 mg PO DAILY [facility] Last Admin: 04/19/17 09:11 Dose: 5 mg Famotidine (Pepcid) 20 mg PO BID [facility] Last Admin: 04/19/17 09:10 Dose: 20 mg Magnesium Sulfate 1 gm/ Sodium (Chloride) 102 mls @ 102 mls/hr IV ONCE [facility] PRN Reason: 1 GM/HR Last Admin: 04/15/17 15:05 Dose: 102 mls/hr Insulin Detemir (Levemir) 32 units SC HS [facility] Last Admin: 04/18/17 21:59 Dose: 32 units Insulin Human Lispro (Humalog) 0 units SC ACHS [facility] PRN Reason: Protocol Last Admin: 04/19/17 07:15 Dose: Not Given Insulin Human Lispro (Humalog) 6 units SC AC [facility] Last Admin: 04/19/17 09:09 Dose: 6 units Ketorolac Tromethamine (Toradol) 15 mg IVP Q6 PRN PRN Reason: pain 6-10 Last Admin: 04/18/17 16:16 Dose: 15 mg Metoclopramide HCl (Reglan) 10 mg IVP Q6 PRN PRN Reason: Nausea/Vomiting Last Admin: 04/19/17 09:10 Dose: 10 mg Ondansetron HCl (Zofran Inj) 4 mg IVP Q6H PRN PRN Reason: Nausea/Vomiting Last Admin: 04/18/17 08:41 Dose: 4 mg - Labs Labs: 04/19/17 09:45 04/18/17 09:50 - Constitutional Appears: Well, Non-toxic, No Acute Distress - Head Exam Head Exam: ATRAUMATIC, NORMAL INSPECTION, NORMOCEPHALIC - Eye Exam Eye Exam: EOMI, Normal appearance, PERRL Pupil Exam: NORMAL ACCOMODATION, PERRL - ENT Exam ENT Exam: Mucous Membranes Moist, Normal Exam - Neck Exam Neck Exam: Full ROM, Normal Inspection. absent: Lymphadenopathy - Respiratory Exam Respiratory Exam: Clear to Ausculation Bilateral, NORMAL BREATHING PATTERN - Cardiovascular Exam Cardiovascular Exam: REGULAR RHYTHM, RRR, +S1, +S2. absent: Murmur - GI/Abdominal Exam GI & Abdominal Exam: Soft, Normal Bowel Sounds. absent: Tenderness - Extremities Exam Extremities Exam: Full ROM, Normal Capillary Refill, Normal Inspection. absent : Joint Swelling, Pedal Edema - Back Exam Back Exam: NORMAL INSPECTION - Neurological Exam Neurological Exam: Alert, Awake, CN II-XII Intact, Normal Gait, Oriented x3 - Psychiatric Exam Psychiatric exam: Normal Affect, Normal Mood - Skin Skin Exam: Dry, Intact, Normal Color, Warm Assessment and Plan (1) AGE (acute gastroenteritis) Status: Acute (2) DVT prophylaxis Status: Acute (3) Diabetic keto-acidosis Status: Acute - Assessment and Plan (Free Text) Assessment: (1) AGE (acute gastroenteritis) Assessment and Plan: pepcid, zofran, bentyl ivf lucie small amt po Status: Acute (2) DVT prophylaxis Assessment and Plan: scd and ae hose ambulation Status: Acute (3) Diabetic keto-acidosis Assessment and Plan: ivf insulin ss home meds fsbg q6h Status: Acute 4-flank pain-muscular vs kidney pain, ua w/ c/s, toradol. furthe rworkup, imaging based upon ua. as pt has pain again abd us completed. pending reuslts
[2017-04-19 10:51] LABS: ALB/GLOB RATIO 1.2 (1.0-2.1); ALBUMIN 3.3 g/dL (3.5-5.0); ALT/SGPT 82 U/L (9-52); AST/SGOT 55 U/L (14-36); BLOOD UREA NITROGEN 8 mg/dl (7-17); GFR AFRICAN-AMERICAN > 60; GFR NON-AFRICAN AMERICAN > 60
--- NOTE | 2017-04-19 12:00 | US ---
HISTORY: persistent nausea and abdominal pain. COMPARISON: None. TECHNIQUE: Sonographic evaluation of the abdomen. FINDINGS: LIVER: Measures 13.9 cm. Normal echogenicity of the liver parenchyma. No mass. No intrahepatic bile duct dilatation. GALLBLADDER: Unremarkable. No gallstones. COMMON BILE DUCT: Measures 3.0 mm. No stones. No dilatation. PANCREAS: Unremarkable as visualized. No mass. No ductal dilatation. RIGHT KIDNEY: Measures 14.1cm. Normal echogenicity. No calculus, mass, or hydronephrosis. LEFT KIDNEY: Measures 14.0cm. Normal echogenicity. No calculus, mass, or hydronephrosis. SPLEEN: Normal in size and contour. No mass. AORTA: No aneurysmal dilatation. IVC: Unremarkable. OTHER FINDINGS: None. IMPRESSION: Unremarkable abdominal sonogram.
--- NOTE | 2017-04-19 19:09 | PN ---
DATE: ENDOCRINOLOGY FOLLOWUP NOTE LOCATION: Room 662. SUBJECTIVE: This is a 42-year-old female with recent uncontrolled type 2 insulin-requiring diabetes, presenting here with diabetic ketoacidosis and dehydration and is now being followed closely for metabolic management. Her oral intake is improving at this time although was still variable meal portions as per the staff as noted. Her glucose values have ranged from 114 to 122 and 196 mg/dL. The latest chemistry shows a BUN of 8, sodium 144, potassium 4.2, chloride 104, CO2 of 30, glucose 178, and creatinine 0.5. So, at this time, we will modify and lower her basal insulin with Levemir to be given as 24 units subcu at bedtime daily to start tonight. We will continue the low-dose correction scale using Humalog insulin as given to obviate hypoglycemia. We will also continue the low-dose prandial insulin with Humalog given as 6 units subcu t.i.d. before meals as given. We will titrate incrementally as indicated to optimize metabolic control. We will also obtain serial chemistries and supplement accordingly as needed. Moreover, we will continue the IV hydration as given. We will also initiate diabetic education and dietary instructions at the time of this admission. Lou Wright MD
[2017-04-19] MEDS ORDERED: Insulin Detemir 100 Units/ml Inj SC SCH (22:00)
[2017-04-20 06:20] LABS: BASO % 0.4 % (0.0-2.0); EOS # 0.1 K/uL (0.0-0.7); EOS % 1.3 % (0.0-4.0); HEMOGLOBIN 11.6 g/dL (12.0-16.0); LYMPH # 1.5 K/uL (1.0-4.3); LYMPH % 30.8 % (20.0-40.0); MEAN CELL VOLUME 103.2 fl (81.0-99.0); MEAN CORPUSCULAR HEMOGLOBIN 33.6 pg (27.0-31.0); MEAN CORPUSCULAR HGB CONC 32.6 g/dL (33.0-37.0); MEAN PLATELET VOLUME 10.2 fl (7.2-11.7); MONO # 0.7 K/uL (0.0-0.8); MONO % 15.3 % (0.0-10.0); NEUT # 2.5 K/uL (1.8-7.0); NEUT % 52.2 % (50.0-75.0); RBC 3.45 Mil/uL (3.80-5.20); RED CELL DISTRIBUTION WIDTH 13.2 % (11.5-14.5); WHITE BLOOD COUNT 4.8 K/uL (4.8-10.8)
[2017-04-20 06:34] LABS: ALB/GLOB RATIO 1.2 (1.0-2.1); ALT/SGPT 76 U/L (9-52); AST/SGOT 53 U/L (14-36); BLOOD UREA NITROGEN 9 mg/dl (7-17); CALCIUM 9.5 mg/dL (8.4-10.2); GFR AFRICAN-AMERICAN > 60; GFR NON-AFRICAN AMERICAN > 60; LIPASE 98 U/L (23-300)
[2017-04-20] MEDS: Insulin Lispro (humaLOG) 100 Units/ml Inj SC SCH ×2 (07:30→07:50)
--- NOTE | 2017-04-20 07:57 | CP.PCM.DIS ---
Provider - Provider Date of Admission: 04/13/17 23:13 Attending physician: Sherry Willis MD Time Spent in preparation of Discharge (in minutes): 15 Diagnosis - Discharge Diagnosis (1) AGE (acute gastroenteritis) Status: Acute (2) DVT prophylaxis Status: Acute (3) Diabetic keto-acidosis Status: Acute Hospital Course - Lab Results Lab Results: Micro Results 04/16/17 14:00 Naris MRSA Culture (Admit) - Final MRSA NOT DETECTED 04/16/17 11:10 Urine,Clean Catch Urine Culture - Final Lactobacillus Species 04/14/17 08:19 Nose MRSA Culture (Admit) - Final MRSA NOT DETECTED Most Recent Lab Values WBC 4.8 K/uL (4.8-10.8) 04/20/17 05:30 RBC 3.45 Mil/uL (3.80-5.20) L 04/20/17 05:30 Hgb 11.6 g/dL (12.0-16.0) L 04/20/17 05:30 Hct 35.6 % (34.0-47.0) 04/20/17 05:30 MCV 103.2 fl (81.0-99.0) H 04/20/17 05:30 MCH 33.6 pg (27.0-31.0) H 04/20/17 05:30 MCHC 32.6 g/dL (33.0-37.0) L 04/20/17 05:30 RDW 13.2 % (11.5-14.5) 04/20/17 05:30 Plt Count 227 K/uL (130-400) 04/20/17 05:30 MPV 10.2 fl (7.2-11.7) 04/20/17 05:30 Gran % Cancelled 04/14/17 04:40 Neut % (Auto) 52.2 % (50.0-75.0) 04/20/17 05:30 Lymph % (Auto) 30.8 % (20.0-40.0) 04/20/17 05:30 Snyder % (Auto) 15.3 % (0.0-10.0) H 04/20/17 05:30 Eos % (Auto) 1.3 % (0.0-4.0) 04/20/17 05:30 Baso % (Auto) 0.4 % (0.0-2.0) 04/20/17 05:30 Gran # Cancelled 04/14/17 04:40 Neut # 2.5 K/uL (1.8-7.0) 04/20/17 05:30 Lymph # 1.5 K/uL (1.0-4.3) 04/20/17 05:30 Snyder # 0.7 K/uL (0.0-0.8) 04/20/17 05:30 Eos # 0.1 K/uL (0.0-0.7) 04/20/17 05:30 Baso # 0.0 K/uL (0.0-0.2) 04/20/17 05:30 Neutrophils % (Manual) 81 % (42-75) H 04/14/17 06:00 Band Neutrophils % 3 % (0-2) H 04/14/17 06:00 Lymphocytes % (Manual) 5 % (20-50) L 04/14/17 06:00 Monocytes % (Manual) 11 % (0-10) H 04/14/17 06:00 Myelocytes % 2 % (0-0) H 04/13/17 22:44 Toxic Granulation Present 04/14/17 06:00 Platelet Estimate Normal (NORMAL) 04/14/17 06:00 Anisocytosis (manual) Slight 04/13/17 22:44 Macrocytosis (manual) Slight 04/14/17 06:00 Tear Drop Cells Slight 04/14/17 06:00 [place] Cells Slight 04/13/17 22:44 pCO2 17 mm/Hg (35-45) L* 04/14/17 05:24 pO2 101 mm/Hg (80-100) H 04/14/17 05:24 HCO3 11.3 mmol/L (21-28) L 04/14/17 05:24 ABG pH 7.25 (7.35-7.45) L 04/14/17 05:24 ABG Total CO2 8.0 mmol/L (22-28) L 04/14/17 05:24 ABG O2 Saturation 99.5 % (95-98) H 04/14/17 05:24 ABG O2 Content 17.9 ML/dL (15-23) 04/14/17 05:24 ABG Base Excess -17.4 mmol/L (-2.0-3.0) L 04/14/17 05:24 ABG Hemoglobin 13.1 g/dL (11.7-17.4) 04/14/17 05:24 ABG Carboxyhemoglobin 1.6 % (0.5-1.5) H 04/14/17 05:24 POC ABG HHb (Measured) 0.5 % (0.0-5.0) 04/14/17 05:24 ABG Methemoglobin 1.4 % (0.0-3.0) 04/14/17 05:24 ABG O2 Capacity 18.0 mL/dL (16-24) 04/14/17 05:24 Kyle Test Yes 04/14/17 05:24 VBG pH 7.04 (7.32-7.43) L* 04/13/17 22:23 VBG pCO2 23 mmHg (40-60) L 04/13/17 22:23 VBG HCO3 5.0 mmol/L 04/13/17 22:23 VBG Total CO2 6.9 mmol/L (22-28) L 04/13/17 22:23 VBG O2 Sat (Calc) 50.7 % (40-65) 04/13/17 22:23 VBG Base Excess -23.0 mmol/L (0.0-2.0) L 04/13/17 22:23 VBG Potassium 4.4 mmol/L (3.6-5.2) 04/13/17 22:23 A-a O2 Difference 27.0 mm/Hg 04/14/17 05:24 Hgb O2 Saturation 96.5 % (95.0-98.0) 04/14/17 05:24 Sodium 133.0 mmol/L (132-148) 04/13/17 22:23 Chloride 95.0 mmol/L (98-107) L 04/13/17 22:23 Glucose 366 mg/dL (65-105) H 04/13/17 22:23 Lactate 2.2 mmol/L (0.7-2.1) H 04/13/17 22:23 FiO2 21.0 % 04/14/17 05:24 Blood Gas Comments Lactate 2.2 04/13/17 22:23 Crit Value Called To Maricarmen jay rn 04/14/17 05:24 Crit Value Called By 60Chrystal 04/14/17 05:24 Crit Value Read Back Y 04/14/17 05:24 Blood Gas Notified Time 527 04/14/17 05:24 Sodium 139 mmol/l (132-148) 04/20/17 05:30 Potassium 4.1 MMOL/L (3.6-5.0) 04/20/17 05:30 Chloride 101 mmol/L (98-107) 04/20/17 05:30 Carbon Dioxide 33 mmol/L (22-30) H 04/20/17 05:30 Anion Gap 9 (10-20) L 04/20/17 05:30 BUN 9 mg/dl (7-17) 04/20/17 05:30 Creatinine 0.6 mg/dl (0.7-1.2) L 04/20/17 05:30 Est GFR ( Amer) > 60 04/20/17 05:30 Est GFR (Non-Af Amer) > 60 04/20/17 05:30 POC Glucose (mg/dL) 119 mg/dL (65-110) H 04/20/17 06:46 Random Glucose 68 mg/dL (65-105) 04/20/17 05:30 Hemoglobin A1c 12.5 % (4.2-6.5) H 04/15/17 04:30 Lactic Acid 1.3 MMOL/L (0.7-2.1) 04/14/17 04:35 Calcium 9.5 mg/dL (8.4-10.2) 04/20/17 05:30 Phosphorus 1.1 mg/dl (2.5-4.5) L 04/16/17 05:06 Magnesium 2.1 MG/DL (1.6-2.3) 04/16/17 08:31 Total Bilirubin 0.3 mg/dl (0.2-1.3) 04/20/17 05:30 AST 53 U/L (14-36) H 04/20/17 05:30 ALT 76 U/L (9-52) H 04/20/17 05:30 Alkaline Phosphatase 52 U/L (38-126) 04/20/17 05:30 Troponin I < 0.0120 ng/mL (0.00-0.120) 04/14/17 00:00 Total Protein 5.7 G/DL (6.3-8.2) L 04/20/17 05:30 Albumin 3.0 g/dL (3.5-5.0) L 04/20/17 05:30 Globulin 2.6 gm/dL (2.2-3.9) 04/20/17 05:30 Albumin/Globulin Ratio 1.2 (1.0-2.1) 04/20/17 05:30 Lipase 98 U/L (23-300) 04/20/17 05:30 Venous Blood Potassium 4.4 mmol/L (3.6-5.2) 04/13/17 22:23 Urine Color Yellow (YELLOW) 04/16/17 11:10 Urine Clarity Cloudy (Clear) 04/16/17 11:10 Urine pH 7.0 (5.0-8.0) 04/16/17 11:10 Ur Specific [place] 1.015 (1.003-1.030) 04/16/17 11:10 Urine Protein Negative mg/dL (NEGATIVE) 04/16/17 11:10 Urine Glucose (UA) >=500 mg/dL (Normal) 04/16/17 11:10 Urine Ketones Trace mg/dL (NEGATIVE) 04/16/17 11:10 Urine Blood Moderate (NEGATIVE) 04/16/17 11:10 Urine Nitrate Negative (NEGATIVE) 04/16/17 11:10 Urine Bilirubin Negative (NEGATIVE) 04/16/17 11:10 Urine Urobilinogen 0.2-1.0 mg/dL (0.2-1.0) 04/16/17 11:10 Ur Leukocyte Esterase Trace Rosita/uL (Negative) 04/16/17 11:10 Urine RBC (Auto) 2 /hpf (0-3) 04/16/17 11:10 Urine Microscopic WBC 10 /hpf (0-5) H 04/16/17 11:10 Ur Squamous Epith Cells 1 /hpf (0-5) 04/16/17 11:10 Urine Bacteria Rare (<OCC) 04/16/17 11:10 Hyaline Casts 3-5 /hpf (0-2) H 04/14/17 01:00 Influenza Typ A,B (EIA) Negative for flu a/b (NEGATIVE) 04/13/17 22:44 Discharge Exam - Head Exam Head Exam: ATRAUMATIC, NORMAL INSPECTION, NORMOCEPHALIC - Eye Exam Eye Exam: EOMI, Normal appearance, PERRL Pupil Exam: NORMAL ACCOMODATION, PERRL - Respiratory Exam Respiratory Exam: Clear to PA & Lateral, NORMAL BREATHING PATTERN, UNREMARKABLE - Cardiovascular Exam Cardiovascular Exam: REGULAR RHYTHM, Rubs, +S1, +S2 - GI/Abdominal Exam GI & Abdominal Exam: Normal Bowel Sounds, Soft, Unremarkable - Extremities Exam Extremities exam: full ROM, normal capillary refill, normal inspection, pedal pulses present - Back Exam Back exam: FULL ROM - Neurological Exam Neurological exam: Alert, CN II-XII Intact, Normal Gait, Oriented x3, Reflexes Normal - Psychiatric Exam Psychiatric exam: Normal Affect, Normal Mood - Skin Skin Exam: Dry, Intact, Normal Color, Warm Discharge Plan - Discharge Medications Prescriptions: Dicyclomine [Bentyl] 10 mg PO QID PRN #20 cap PRN Reason: abd cramping Famotidine [Pepcid] 20 mg PO BID #20 tab - Follow Up Plan Condition: CRITICAL Disposition: HOME/ ROUTINE Additional Instructions: final dx-age, n/v/d, dka doing well, w/o pain no f/c, n/v/d at present. abd us normal. us abd negative. pt for dc home today, rted prn, meds per med rec. no distress
[2017-04-20 08:53] VITALS: BP 128/81; PULSE 80; RESP 20; TEMP 97.7; O2SAT 98
--- NOTE | 2017-04-20 18:31 | PN ---
DATE: ENDOCRINOLOGY FOLLOWUP NOTE LOCATION: Room 662. SUBJECTIVE: This is a 42-year-old female with recent uncontrolled type 2 insulin-requiring diabetes, presenting here with diabetic ketoacidosis and dehydration and has since then improved clinically and metabolically as noted thereof. Her glucose values have ranged from 88 to 119 and 172 mg/dL. Her latest chemistry shows a BUN of 9, sodium 139, potassium 4.1, chloride 101, CO2 of 33, glucose 68, and creatinine 0.6. So, at this time, we will continue the same basal and bolus insulin regimen as given with Levemir given as 24 units subcu at bedtime daily as ordered. We will continue the Humalog given as 6 units subcu t.i.d. before meals as given. We will titrate incremental as indicated to optimize metabolic control. She will follow with her medical doctor for outpatient diabetic and medical management. Lou Wright MD
== END 2017-04-20 10:10 | disposition home or self-care (01) | DRG 294 ==
LOC: H.ER 21:28 → H.ERHOLD 23:13 → H.ICU/CCU 04-14 00:48 → H.MEDSURG1 04-16 12:10
PROVIDERS: ADMIT Family Medicine; ATTEND Family Medicine
DX: E11.10 Type 2 diabetes mellitus with ketoacidosis without coma (principal); E78.5 Hyperlipidemia, unspecified; E86.0 Dehydration; J44.9 Chronic obstructive pulmonary disease, unspecified; E87.6 Hypokalemia; E11.649 Type 2 diabetes mellitus with hypoglycemia without coma; F17.210 Nicotine dependence, cigarettes, uncomplicated; I10 Essential (primary) hypertension; K52.9 Noninfective gastroenteritis and colitis, unspecified; Z79.4 Long term (current) use of insulin; Z82.49 Family history of ischemic heart disease and other diseases of the circulatory system; Z83.3 Family history of diabetes mellitus; M79.1 Myalgia; R74.0 Nonspecific elevation of levels of transaminase and lactic acid dehydrogenase [LDH]